=== PATIENT | male | born 1955 | race African-American/Black ===

== ENCOUNTER 2016-07-02 11:02 | Inpatient (IN) ==
--- NOTE | 2016-07-02 11:21 | Cardiothoracic History & Phys ---
History of Present Illness Chief complaint: chest pain History of present illness: Mr. Aldrich is a 61 year old male who presented to [facility] with recent onset of substernal chest discomfort radiating to his left arm. He has had previous similar pains when he had a stent placed approximately 3 years ago. He is been under increasing stress at home and he believes that this is provoked. He underwent cardiac catheterization revealing significant left main coronary stenosis and has been referred to this hospital for bypass surgery. Past medical history is significant in that in that he has end-stage renal disease and is on hemodialysis. He also has a history of severe hypertension. He has a history of substance abuse in the remote past presently neither drinks alcohol Ayala uses any illicit drugs. He is a nonsmoker. His medications at home include Coreg 12.5 mg daily. He is also on Robaxin and Aleve and nifedipine. His review of systems is noncontributory his family history does show history of premature coronary disease. Physical examination: Patient is a well-developed well-nourished - [place] man in no acute distress. Examination of HEENT show the pupils are equal and react to light extraocular motions are intact and the oropharynx is benign. Examination of the neck shows no masses there is no thyromegaly and there are no bruits. Semination her chest is clear to percussion and auscultation. Examination of heart shows regular sinus rhythm and there are no murmurs. Examination of the abdomen shows no masses or organomegaly. Examination of the extremities shows no cyanosis or edema. Neurological examination is grossly intact. Assessment: Coronary artery disease with left main coronary stenosis. Plan: Coronary bypass surgery in the morning 07/03/2016. Allergies Allergy/AdvReac Type Severity Reaction Status Date / Time LISINOPRIL Allergy Unknown Uncoded 04/18/16 08:35 GABENTIN Allergy Uncoded 04/18/16 08:35 Medical,Surgical,& Family Hx - Medical History Neurology: No history of: Seizures - Social History Smoking Status: Never smoker
[2016-07-02] MEDS ORDERED: DEXTROSE 50% 25 GM/50 ML VIAL IV PRN (11:22)
[2016-07-02] MEDS ORDERED: CEFUROXIME INJ 1,500 MG in SODIUM CHLORIDE 0.9% 100 ML IV ONE (11:22)
[2016-07-02] MEDS ORDERED: GLUCAGON 1 MG VIAL IM PRN (11:22)
[2016-07-02] MEDS: NAPROXEN 500 MG TABLET PO SCH ×2 (22:25→23:06)
[2016-07-02] MEDS: METHOCARBAMOL 500 MG TABLET PO SCH ×2 (22:26→23:05)
[2016-07-02] MEDS: SODIUM CHLORIDE 0.9% 1,000 ML IV SCH (22:26)
[2016-07-02] MEDS: CHLORHEXIDINE 4% SOLN 118 ML BOTTLE TOP SCH ×2 (22:26)
--- NOTE | 2016-07-02 22:28 | XRay Report ---
XR chest 2V Indication: CAD for CABG today Comparison: Chest x-ray dated July 06, 2014 Technique: Frontal and lateral views of the chest Findings: Mild cardiomegaly. Mild bilateral interstitial prominence may reflect interstitial pulmonary edema. There is small bilateral pleural fluid. Osseous and surrounding soft tissue structures appear grossly unchanged. IMPRESSION: As above. PROCEDURE INTERPRETED AT [facility] DEPARTMENT OF RADIOLOGY Final Report Signed by: Dr Don Reed
[2016-07-02] MEDS ORDERED: MORPHINE 2 MG/1 ML SYRINGE IV PRN (22:49)
[2016-07-02] MEDS ORDERED: hydrALAZINE 20 MG/1 ML VIAL IV PRN (22:50)
[2016-07-02 23:00] LABS: ABG PCO2 34.8 MM HG (35-48); ABG PH 7.432 (7.35-7.45); ABG PO2 70.7 MM HG (80-95); Pt O2 Delivery Device Room Air
[2016-07-02] MEDS ORDERED: NITROGLYCERIN DRIP 50 MG/250 ML BOTTLE IV SCH (23:00)
[2016-07-02 23:01] LABS: ABG Base Excess -0.6 MMOL/L (-2.5-2.5); ABG HCO3 23.9 MMOL/L (20-26); ABG Oxygen Saturation 95.2 % (95-100)
[2016-07-02] MEDS: CHLORHEXIDINE 0.12% ORAL RINSE 60 ML BOTTLE SWISH/SPIT SCH (23:06)
[2016-07-02 23:08] LABS: Basophils % 0.4 % (0.0-0.8); Eosinophils # 0.1 10*3/uL (0.0-0.87); Eosinophils % 1.7 % (0.00-10.9); Hemoglobin 10.5 GM/DL (14.0-18.0); Immature Granulocytes % 0.2 %; Immature Granulocytes Absolute 0.01 #; Lymphocytes # 0.9 10*3/uL (1.4-4.0); Lymphocytes % 17.2 % (21.2-54.2); Mean Corpuscular HGB Conc 33.9 GM/DL (32-36); Mean Corpuscular Hemoglobin 30 PG (27-34); Mean Corpuscular Volume 89.9 FL (87-102); Mean Platelet Volume 11.4 FL (9.6-12.0); Monocytes # 0.5 10*3/uL (0.11-0.8); Monocytes % 8.9 % (1.7-12.7); Neutrophils # 3.8 10*3/uL (1.4-7.4); Neutrophils % 71.6 % (38.7-73.9); Platelet Count 127 10*3/uL (130-400); Red Blood Count 3.45 10*6/uL (3.8-5.5); Red Cell Distribution Width 13.1 % (9.3-17.3); White Blood Count 5.3 10*3/uL (4.5-13.71)
[2016-07-02 23:36] LABS: Albumin 3.6 G/DL (3.4-5.0); Bilirubin,Total 0.5 MG/DL (0.2-1.0); Calcium 8.4 MG/DL (8.5-10.1); Osmolality,Calculated 289.4 MOS/KG (273-304); Potassium 4.7 MMOL/L (3.5-5.1); Total Protein 7.9 G/DL (6.4-8.3)
[2016-07-03] MEDS: CHLORHEXIDINE 4% SOLN 118 ML BOTTLE TOP SCH ×3 (01:41→16:41)
[2016-07-03] MEDS ORDERED: VANCOMYCIN 1,000 MG VIAL ONE (04:38)
[2016-07-03] MEDS ORDERED: PAPAVERINE 60 MG/2 ML VIAL ONE (04:38)
[2016-07-03] MEDS ORDERED: DIAZEPAM 5 MG TABLET PO ONE (05:39)
[2016-07-03] MEDS ORDERED: FAMOTIDINE 20 MG/2 ML VIAL IV ONE (05:39)
[2016-07-03] MEDS ORDERED: CEFUROXIME INJ 1,500 MG in SODIUM CHLORIDE 0.9% 100 ML IV ONE (06:00)
--- NOTE | 2016-07-03 06:23 | EKG Report ---
Stationary ECG Study [facility] Test Date: 07/03/2016 5:46:51 AM Pat Name: RADHA ANNE Department: Room: 117 Gender: M Sales Development Consultant: EMILIANO : 1955 Requested by: Carlos Kenyon Order Number: [id number] Reading MD: ELIZABET WU Intervals [place] Rate: 74 P: 73 NV: 181 QRS: -12 QRSD: 143 T: 28 QT: 449 QTc: 477 Interpretive Statements SINUS RHYTHM RIGHT BUNDLE BRANCH BLOCK MODERATE T-WAVE ABNORMALITY, CONSIDER LATERAL ISCHEMIA Electronically Signed On 07-03-16 20:44:41 PHYSICAL THERAPY MANAGER by ELIZABET WU [email or web address]
[2016-07-03 06:31] LABS: PT Patient Result 11.1 SECS
[2016-07-03] MEDS ORDERED: DEXAMETHASONE 4 MG/1 ML VIAL ONE (06:39)
[2016-07-03] MEDS ORDERED: VECURONIUM 10 MG VIAL IV ONE (06:39)
[2016-07-03] MEDS ORDERED: LIDOCAINE 1% 5 ML VIAL ONE (06:39)
[2016-07-03] MEDS ORDERED: CALCIUM CHLORIDE 1,000 MG/10 ML SYRINGE IV ONE ×4 (06:39→11:42)
[2016-07-03] MEDS ORDERED: ETOMIDATE 20 MG/10 ML VIAL IV ONE (06:39)
[2016-07-03] MEDS ORDERED: diphenhydrAMINE 50 MG/1 ML VIAL ONE (06:39)
[2016-07-03] MEDS ORDERED: AMINOCAPROIC ACID 5,000 MG/20 ML VIAL IV ONE (06:39)
[2016-07-03 07:26] LABS: Apearance,Urine Slightly Hazy (Clear); Bacteria,Urine Occasional /HPF (Few); Bilirubin,Urine Negative (Negative); Blood, Urine Small mg/dL (Negative); Glucose,Urine (UA) 150 mg/dL (Negative); Ketones,Urine Negative (Negative); Nitrite,Urine Negative (Negative); Protein,Urine >=500 MG/DL; RBC,Urine 1 /HPF (0-4); Squamous Epithelial Cell,Urine Occasional /HPF (0-10); Urine Color Yellow (Yellow); Urine Specific Gravity 1.013 (1.001-1.035); Urine Urobilinogen < 2.0 EU/DL (0.2-1.0); WBC,Urine 1 /HPF (0-6)
[2016-07-03 07:28] LABS: ABG Base Excess -1.6 MMOL/L (-2.5-2.5); ABG HCO3 23.1 MMOL/L (20-26); ABG Oxygen Saturation 99.8 % (95-100); ABG PCO2 37.2 MM HG (35-48); ABG PH 7.398 (7.35-7.45); ABG TCO2 21.3 MMOL/L (23-27); Glucose Heart Surgery 116 MG/DL (74-106); Hemoglobin Heart Surgery 8.3 G/DL (14.0-18.0); Ionized Calcium Arterial 1.04 MMOL/L (1.21-1.46); PCO2 Patient Temp Arterial 37.2 MMHG; PH Patient Temp Arterial 7.398; Patient Temperature 37 CELCIUS; Potassium Heart/CVR 3.9 MMOL/L (3.5-5.1); Sodium Heart/CVR 135 MMOL/L (135-145)
[2016-07-03 08:59] LABS: PCO2 Patient Temp Venous 36.8 MM HG; PH Patient Temp Venous 7.393; PO2 Patient Temp Venous 33.6 MM HG; Potassium Heart/CVR 4.2 MMOL/L (3.5-5.1); VBG HCO3 22.5 MEQ/L (24-28); VBG Oxygen Saturation 72.8 %; VBG PCO2 40.5 MMHG (41-51); VBG PH 7.365; VBG PO2 38.6 MMHG (17-40)
[2016-07-03] MEDS ORDERED: CARVEDILOL 12.5 MG TABLET PO SCH (09:00)
[2016-07-03 09:01] LABS: Hematocrit Heart Surgery 17.4 PERCENT (42-52); Hemoglobin Heart Surgery 5.5 G/DL (14.0-18.0)
[2016-07-03 09:27] LABS: Hematocrit Heart Surgery 29.1 PERCENT (42-52); Hemoglobin Heart Surgery 9.4 G/DL (14.0-18.0); PCO2 Patient Temp Venous 37.1 MM HG; PH Patient Temp Venous 7.367; PO2 Patient Temp Venous 34.4 MM HG; Potassium Heart/CVR 4.9 MMOL/L (3.5-5.1); VBG Base Excess -3.6 MEQ/L (0-4); VBG HCO3 21.1 MEQ/L (24-28); VBG Oxygen Saturation 72.7 %; VBG PH 7.353; VBG PO2 36.9 MMHG (17-40)
[2016-07-03] MEDS ORDERED: PHENYLEPHRINE DRIP 40 MG/250 ML PREMIX IV ONE (09:42)
[2016-07-03] MEDS ORDERED: NITROPRUSSIDE 50 MG/2 ML VIAL ONE ×2 (09:42→09:43)
[2016-07-03] MEDS ORDERED: ALBUMIN 5% 12.5 GM/250 ML VIAL IV ONE (09:50)
[2016-07-03] MEDS ORDERED: POTASSIUM CHLORIDE RIDER 100 ML IV ONE (09:50)
[2016-07-03 09:59] LABS: ABG Base Excess -4.1 MMOL/L (-2.5-2.5); ABG Oxygen Saturation 99.6 % (95-100); ABG PCO2 36.1 MM HG (35-48); ABG PH 7.366 (7.35-7.45); ABG TCO2 19.2 MMOL/L (23-27); Glucose Heart Surgery 181 MG/DL (74-106); Hematocrit Heart Surgery 26.7 PERCENT (42-52); Hemoglobin Heart Surgery 8.6 G/DL (14.0-18.0); Ionized Calcium Arterial 1.01 MMOL/L (1.21-1.46); PCO2 Patient Temp Arterial 36.1 MMHG; PH Patient Temp Arterial 7.366; Patient Temperature 37 CELCIUS; Potassium Heart/CVR 4.4 MMOL/L (3.5-5.1); Sodium Heart/CVR 131 MMOL/L (135-145)
[2016-07-03] MEDS ORDERED: SODIUM BICARBONATE 50 MEQ/50 ML VIAL IV ONE ×2 (10:00→12:35)
[2016-07-03] MEDS ORDERED: DEXTROSE 5% KCL 20 MEQ 20 MEQ/1,000 ML BAG IV ONE (10:00)
[2016-07-03] MEDS ORDERED: ALBUMIN 25% 25 GM/100 ML VIAL IV ONE (10:00)
[2016-07-03] MEDS ORDERED: MANNITOL 12.5 GM/50 ML VIAL IV ONE (10:01)
[2016-07-03] MEDS ORDERED: PROTAMINE SULFATE 50 MG/5 ML VIAL IV ONE (10:01)
[2016-07-03] MEDS ORDERED: HEPARIN 10,000 UNIT/10 ML VIAL ONE (10:01)
[2016-07-03] MEDS ORDERED: PROTAMINE SULFATE 250 MG/25 ML VIAL IV ONE (10:01)
[2016-07-03] MEDS ORDERED: MAGNESIUM SULFATE 1 GM/2 ML VIAL ONE (10:01)
[2016-07-03] MEDS ORDERED: methylPREDNISolone SOD SUC 1,000 MG/8 ML VIAL ONE (10:01)
[2016-07-03] MEDS ORDERED: FUROSEMIDE 20 MG/2 ML VIAL ONE (10:01)
[2016-07-03] MEDS ORDERED: THROMBIN TOPICAL (RECOMBINANT) 5,000 UNIT VIAL TOP ONE (10:12)
[2016-07-03] MEDS ORDERED: DOBUTamine 500 MG/250 ML PREMIX IV ONE (10:55)
[2016-07-03] MEDS ORDERED: methylPREDNISolone SOD SUC 125 MG/2 ML VIAL ONE (11:02)
[2016-07-03] MEDS ORDERED: EPINEPHrine 1 MG/10 ML SYRINGE ONE (11:03)
[2016-07-03] MEDS ORDERED: EPINEPHrine 1 MG/ML VIAL ONE (11:07)
[2016-07-03 11:11] LABS: ABG Base Excess -3.8 MMOL/L (-2.5-2.5); ABG HCO3 21.2 MMOL/L (20-26); ABG Oxygen Saturation 99.4 % (95-100); ABG PCO2 35.4 MM HG (35-48); ABG PH 7.377 (7.35-7.45); ABG TCO2 19.5 MMOL/L (23-27); Glucose Heart Surgery 182 MG/DL (74-106); Hematocrit Heart Surgery 24.7 PERCENT (42-52); Hemoglobin Heart Surgery 7.9 G/DL (14.0-18.0); Potassium Heart/CVR 5.2 MMOL/L (3.5-5.1)
[2016-07-03] MEDS ORDERED: ONDANSETRON 4 MG/2 ML VIAL IV PRN (11:12)
[2016-07-03] MEDS ORDERED: LACTATED RINGERS 250 ML IV PRN (11:12)
[2016-07-03] MEDS ORDERED: INSULIN REGULAR 100 UNIT/ML IV ONE (11:12)
[2016-07-03] MEDS ORDERED: POTASSIUM CHLORIDE RIDER 10 MEQ in PREMIX 1 EACH IV PRN (11:12)
[2016-07-03] MEDS ORDERED: DEXTROSE 50% 25 GM/50 ML VIAL IV PRN ×2 (11:12)
[2016-07-03] MEDS ORDERED: ACETAMINOPHEN 650 MG SUPP RECTAL PRN (11:12)
[2016-07-03] MEDS ORDERED: MAGNESIUM SULF RIDER 4 GM in PREMIX 1 EACH IV PRN (11:12)
[2016-07-03] MEDS ORDERED: NITROPRUSSIDE 100 MG in DEXTROSE 5% 250 ML IV PRN (11:12)
[2016-07-03] MEDS ORDERED: VECURONIUM 10 MG VIAL IV PRN ×2 (11:12)
[2016-07-03] MEDS ORDERED: MIDAZOLAM 10 MG/2 ML VIAL IV PRN (11:12)
[2016-07-03] MEDS ORDERED: MIDAZOLAM 2 MG/2 ML VIAL IV PRN (11:12)
[2016-07-03] MEDS ORDERED: CALCIUM CHLORIDE 1,000 MG/10 ML SYRINGE IV PRN (11:12)
[2016-07-03] MEDS ORDERED: MAGNESIUM SULF RIDER 2 GM in PREMIX 1 EACH IV PRN (11:12)
[2016-07-03] MEDS ORDERED: POTASSIUM CHLORIDE RIDER 20 MEQ in PREMIX 1 EACH IV PRN (11:12)
[2016-07-03] MEDS ORDERED: MORPHINE 10 MG/1 ML VIAL IV PRN (11:12)
[2016-07-03] MEDS ORDERED: EPINEPHrine 1 MG/10 ML SYRINGE IV ONE (11:20)
[2016-07-03] MEDS ORDERED: methylPREDNISolone SOD SUC 125 MG/2 ML VIAL IV ONE (11:20)
[2016-07-03] MEDS: SODIUM CHLORIDE 0.45% 1,000 ML IV SCH ×2 (11:20)
--- NOTE | 2016-07-03 11:22 | Operative Note ---
Date of procedure: 07/03/16 Pre-op diagnosis: coronary artery disease Post-op diagnosis: same Procedure: Procedure: Coronary bypass grafting times to the left internal mammary graft to the obtuse marginal coronary artery and a saphenous vein graft to the anterior descending coronary artery. Findings: Patient is a 61-year-old man who has end-stage renal disease and is on hemodialysis. He presented with substernal chest pain to [facility] cardiac catheterization demonstrated critical left main coronary stenosis. Patient was referred for that purpose. At the time of surgery left ventricular function was noted to be moderately impaired and a saphenous vein graft was placed to a moderately to heavily diseased anterior descending coronary artery. The internal mammary was placed to a disease-free obtuse marginal coronary artery. Patient tolerated the procedure well was returned recovery in satisfactory condition. Seizure: Patient brought to the operative room placed on the operating table in supine position. After satisfactory induction of general anesthesia the chest abdomen and legs were prepped and draped in sterile fashion. Greater saphenous vein was harvested from the left lower leg and prepared as an arterial graft. Incision leg was closed with 3-0 subcutaneous Monopril and 3-0 subcuticular Monocryl. Standard sternotomy incision was made and the sternum was divided and the heart suspended in a pericardial cradle. The left internal mammary artery was dissected free and prepared as an arterial graft. Patient was prepared for cardiopulmonary bypass with systemic heparinization and cannulation of the ascending aorta and right atrium. Cardiopulmonary bypass was begun and the aorta was crossclamped and the heart arrested with cardioplegia solution injected into the aortic root. Heart was protected during the period of crossclamping with topical saline slush. Distal anastomoses were constructed as noted above and then the aorta was unclamped reestablished and cardiac action. Proximal anastomosis was constructed between the ascending aorta and the inflow end of the saphenous vein graft. Patient was then weaned from cardiopulmonary bypass without difficulty and heparin effect reversed with protamine. Decannulation was carried out in the defects in the ascending aorta and right atrium closed with 3-0 Prolene. The operative field was inspected for hemostasis and when this was considered adequate the incision was closed with interrupted stainless steel wire and the sternum and 0 Monopril and the presternal fascia. Skin was closed with 3-0 subcuticular Monocryl. 2 chest tubes were left in the anterior mediastinum and brought out through separate stab incisions. Sterile dressings were applied and the patient was returned recovery in satisfactory condition. Anesthesia: RAMIROA Surgeon / Physician: Esvin Olivas Estimated blood loss: other Condition: stable Disposition: ICU (unable to determine because of cardiopulmonary bypass) Results - Labs CBC & BMP: 07/03/16 09:50 07/02/16 22:45 Discharge Plan - Discharge Medications No Action Insulin Aspart Prot/Asp 70/30 [NovoLOG Mix 70/30] 10 unit SUBCUT DAILY Naproxen [Naprosyn Tab] 1 tablet PO BID Methocarbamol Tab [Robaxin Tab] 1,000 mg PO QID Carvedilol [Coreg] 12.5 mg PO DAILY Aspirin EC Tab 81 mg PO DAILY traMADol TAB [Ultram] 1 tablet PO Q4H PRN PRN Reason: Pain Mild To Moderate (1-7) - Follow Up or Referral - Forms/Instructions
[2016-07-03 11:35] LABS: Basophils % 0.2 % (0.0-0.8); Eosinophils # 0.1 10*3/uL (0.0-0.87); Eosinophils % 0.7 % (0.00-10.9); Hematocrit 21.7 VOL% (42.0-52.0); Immature Granulocytes % 0.5 %; Immature Granulocytes Absolute 0.05 #; Lymphocytes # 1.4 10*3/uL (1.4-4.0); Lymphocytes % 14.5 % (21.2-54.2); Mean Corpuscular HGB Conc 34.1 GM/DL (32-36); Mean Corpuscular Hemoglobin 31 PG (27-34); Mean Corpuscular Volume 89.7 FL (87-102); Mean Platelet Volume 11.3 FL (9.6-12.0); Monocytes # 0.3 10*3/uL (0.11-0.8); Monocytes % 3.5 % (1.7-12.7); Neutrophils # 7.7 10*3/uL (1.4-7.4); Neutrophils % 80.6 % (38.7-73.9); Red Cell Distribution Width 14.2 % (9.3-17.3)
[2016-07-03 11:38] LABS: Hemoglobin 7.4 GM/DL (14.0-18.0); Red Blood Count 2.42 10*6/uL (3.8-5.5); White Blood Count 9.6 10*3/uL (4.5-13.71)
[2016-07-03 11:39] LABS: Platelet Count 136 10*3/uL (130-400)
[2016-07-03] MEDS: PHENYLEPHRINE DRIP 40 MG/250 ML PREMIX IV PRN ×2 (11:40→18:27)
[2016-07-03 11:44] LABS: INR 1.3; PT Patient Result 13.5 SECS; Partial Thromboplastin Time 30.1 SECS (0-40)
[2016-07-03] MEDS: SODIUM CHLORIDE 0.9% 1,000 ML IV PRN ×2 (12:00→13:02)
[2016-07-03 12:03] LABS: ABG Base Excess -7.8 MMOL/L (-2.5-2.5); ABG Oxygen Saturation 94.7 % (95-100); ABG PCO2 41.9 MM HG (35-48); ABG PH 7.261 (7.35-7.45); ABG PO2 76.9 MM HG (80-95); ABG TCO2 17.7 MMOL/L (23-27); Glucose Heart Surgery 228 MG/DL (74-106); Hematocrit Heart Surgery 27.2 PERCENT (42-52); Hemoglobin Heart Surgery 8.8 G/DL (14.0-18.0); Potassium Heart/CVR 5.2 MMOL/L (3.5-5.1)
[2016-07-03 12:07] LABS: CKMB % 4.3 %
[2016-07-03 12:13] LABS: Troponin I Only 4.82 NG/ML (0.00-0.045)
--- NOTE | 2016-07-03 12:27 | XRay Report ---
Portable chest Date:[07/03/2016] Clinical history: Line placement Comparison: 07/02/2016 Technique: Portable AP sitting chest Findings: The heart is large in size with interval median sternotomy. The endotracheal tube, nasogastric tube, and mediastinal chest tubes are in satisfactory position. Left subclavian CVP line with tip at junction of SVC and right atrium. No definite pneumothorax is identified. Minimal atelectasis with small left pleural effusion. Impression: Interval median sternotomy with support devices in satisfactory position. The heart is larger in size with minimal atelectasis and smaller pleural effusion. No definite pneumothorax. PROCEDURE INTERPRETED AT [facility] DEPARTMENT OF RADIOLOGY Final Report Signed by: Dr. Jessie Crow
[2016-07-03] MEDS ORDERED: SUFentanil 250 MCG/5 ML AMP ONE (12:34)
[2016-07-03] MEDS ORDERED: MIDAZOLAM 10 MG/2 ML VIAL ONE ×2 (12:34)
[2016-07-03] MEDS ORDERED: SODIUM CHLORIDE 0.9% 250 ML IV ONE (12:35)
[2016-07-03] MEDS ORDERED: SODIUM CHLORIDE 0.9% 100 ML IV ONE (12:35)
[2016-07-03] MEDS ORDERED: SODIUM CHLORIDE 0.9% 1,000 ML IV ONE (12:35)
[2016-07-03] MEDS ORDERED: SODIUM CHLORIDE 0.9% 500 ML IV ONE (12:35)
[2016-07-03] MEDS ORDERED: SEVOFLURANE 1 UNIT/15 MINUTE INH ONE (12:35)
[2016-07-03 13:17] LABS: ABG Oxygen Saturation 98.3 % (95-100); ABG PCO2 41.2 MM HG (35-48); ABG PH 7.303 (7.35-7.45); ABG PO2 170.9 MM HG (80-95); ABG TCO2 21.2 MMOL/L (23-27); Glucose Heart Surgery 203 MG/DL (74-106); Hemoglobin Heart Surgery 10.3 G/DL (14.0-18.0)
[2016-07-03 13:18] LABS: Potassium Heart/CVR 6.1 MMOL/L (3.5-5.1)
[2016-07-03] MEDS ORDERED: SODIUM POLYSTYRENE SULFATE 15 GM/60 ML BOTTLE PO ONE (13:34)
[2016-07-03] MEDS: INSULIN REGULAR DRIP 100 ML IV SCH (14:05)
[2016-07-03] MEDS ORDERED: ALBUMIN 25% 25 GM in PREMIX 1 EACH IV ONE (14:30)
[2016-07-03 14:36] LABS: Albumin 2.7 G/DL (3.4-5.0); Bilirubin,Total 0.9 MG/DL (0.2-1.0); Calcium 9.1 MG/DL (8.5-10.1); Magnesium 2.2 MG/DL (1.8-2.4); Osmolality,Calculated 288.7 MOS/KG (273-304); Potassium 4.9 MMOL/L (3.5-5.1); Total Protein 5.5 G/DL (6.4-8.3)
--- NOTE | 2016-07-03 14:41 | Nephrology Progress Note ---
Nephrology - PN: Subj Interval history: Patient was admitted last night from [facility] for cardiothoracic bypass surgery this morning. The patient presented at [place] a few days ago with chest pain and shortness of breath. He underwent a coronary angiogram there that revealed three-vessel disease. Presently the patient is intubated and sedate. Physical exam general patient's chronically ill-appearing, heart is regular rate and rhythm, he has no pitting edema, lungs are clear to auscultation anteriorly, abdomen is soft with decreased bowel sounds Assessment/plan 1. Coronary artery disease status post CABG 2. End-stage renal disease-this patient was dialyzed yesterday morning. We will plan on dialyzing him tomorrow and hold off on dialyzing the day of possible. 3. Hyperkalemia patient's most recent potassium was 6.1, aborted Kayexalate 30 g per NG tube and we'll repeat this in 4 hours if his repeat potassium than is 6.0 or greater. 4. Metabolic acidosis-patient's bicarbonate was 20 his PCO2 is 40, we may do well to increase his ventilatory rate a little too long some of his acid. 5. Anemia-patient's deloris hematocrit was 21% it's increased to 28% with blood transfusions 6. Diabetes mellitus-patient's on a insulin drip 7. Hypotension patient's on multiple pressor agents including Yogi-Synephrine and epinephrine, he is also requiring a large amount of normal saline volume infusion. I'll defer to CV surgery as to the balance between pressor agents and volume resuscitation. Exam (PN)-Nephrology - Vital Signs Vital signs: Period Temp Pulse Resp BP Sys/Franco Pulse Ox Last 24 Hr 98.1 F-99.3 F 70-81 10-45 118-211/51-115 85-99 - Lab 07/03/16 11:25 07/02/16 22:45 Most recent lab results ABG pH 7.303 (7.35-7.45) L 07/03/16 13:01 ABG pCO2 41.2 MM HG (35-48) 07/03/16 13:01 ABG pO2 170.9 MM HG (80-95) H 07/03/16 13:01 ABG HCO3 20.0 MMOL/L (20-26) 07/03/16 13:01 ABG O2 Saturation 98.3 % (95-100) 07/03/16 13:01 Calcium 8.4 MG/DL (8.5-10.1) L 07/02/16 22:45 Specialty Discharge - Follow Up or Referrals - Discharge Medications No Action Insulin Aspart Prot/Asp 30 [NovoLOG Mix 70/30] 10 unit SUBCUT DAILY Naproxen [Naprosyn Tab] 1 tablet PO BID Methocarbamol Tab [Robaxin Tab] 1,000 mg PO QID Carvedilol [Coreg] 12.5 mg PO DAILY Aspirin EC Tab 81 mg PO DAILY traMADol TAB [Ultram] 1 tablet PO Q4H PRN PRN Reason: Pain Mild To Moderate (1-7)
[2016-07-03] MEDS: METHOCARBAMOL 500 MG TABLET PO SCH (16:41)
[2016-07-03] MEDS: CHLORHEXIDINE 0.12% ORAL RINSE 60 ML BOTTLE SWISH/SPIT SCH ×2 (16:41→21:53)
[2016-07-03] MEDS: NAPROXEN 500 MG TABLET PO SCH (16:41)
[2016-07-03 18:12] LABS: ABG Base Excess -11.7 MMOL/L (-2.5-2.5); ABG HCO3 15.1 MMOL/L (20-26); ABG Oxygen Saturation 98.6 % (95-100); ABG PCO2 37.5 MM HG (35-48); ABG PH 7.223 (7.35-7.45); ABG PO2 204.4 MM HG (80-95); ABG TCO2 16.3 MMOL/L (23-27); Glucose Heart Surgery 123 MG/DL (74-106); Hemoglobin Heart Surgery 10.9 G/DL (14.0-18.0)
[2016-07-03 18:14] LABS: Potassium Heart/CVR 7.8 MMOL/L (3.5-5.1)
[2016-07-03] MEDS: CEFUROXIME INJ 1,500 MG in SODIUM CHLORIDE 0.9% 100 ML IV SCH (18:40)
[2016-07-03] MEDS: SODIUM CHLORIDE 0.9% 1,000 ML IV SCH (18:55)
[2016-07-03] MEDS: ALBUMIN 5% 12.5 GM in PREMIX 1 EACH IV PRN ×2 (19:53→20:27)
[2016-07-03 20:52] LABS: ABG Base Excess -7.7 MMOL/L (-2.5-2.5); ABG HCO3 18.5 MMOL/L (20-26); ABG PCO2 40.3 MM HG (35-48); ABG PH 7.279 (7.35-7.45); ABG PO2 111.4 MM HG (80-95); ABG TCO2 19.7 MMOL/L (23-27); Glucose Heart Surgery 95 MG/DL (74-106); Hemoglobin Heart Surgery 9.3 G/DL (14.0-18.0)
[2016-07-03 20:53] LABS: Potassium Heart/CVR 7.3 MMOL/L (3.5-5.1)
--- NOTE | 2016-07-03 21:04 | Dialysis Note ---
Dialysis Note - Dialysis Note Patient is seen on dialysis status post cardiovascular surgery. Blood pressures noted to be 103/50. Continue on a 2K bath and will repeat potassium level as patient's last potassium was noted be 7.3. Also increase in the dialysate flow which will help with potassium management
[2016-07-03] MEDS ORDERED: PROPOFOL 1,000 MG/100 ML BOTTLE IV ONE (21:40)
[2016-07-03 21:51] LABS: Troponin I Only 14.3 NG/ML (0.00-0.045)
[2016-07-03] MEDS ORDERED: PROPOFOL 1,000 MG/100 ML BOTTLE IV SCH (22:00)
[2016-07-03 23:38] LABS: ABG Base Excess -2.7 MMOL/L (-2.5-2.5); ABG HCO3 22.1 MMOL/L (20-26); ABG Oxygen Saturation 98.9 % (95-100); ABG PH 7.358 (7.35-7.45); ABG TCO2 20.8 MMOL/L (23-27); Glucose Heart Surgery 114 MG/DL (74-106); Hematocrit Heart Surgery 28.2 PERCENT (42-52); Hemoglobin Heart Surgery 9.1 G/DL (14.0-18.0); Potassium Heart/CVR 4.1 MMOL/L (3.5-5.1)
[2016-07-04] MEDS: MORPHINE 2 MG/1 ML SYRINGE IV PRN ×5 (01:40→21:59)
[2016-07-04] MEDS: INSULIN REGULAR 100 UNIT/ML IV PRN ×4 (02:06→08:16)
[2016-07-04 03:13] LABS: ABG Base Excess -5.8 MMOL/L (-2.5-2.5); ABG HCO3 19.6 MMOL/L (20-26); ABG Oxygen Saturation 97.5 % (95-100); ABG PCO2 33.8 MM HG (35-48); ABG PH 7.358 (7.35-7.45); ABG PO2 92.4 MM HG (80-95); ABG TCO2 17.7 MMOL/L (23-27); Glucose Heart Surgery 161 MG/DL (74-106); Hemoglobin Heart Surgery 8.4 G/DL (14.0-18.0)
[2016-07-04 03:41] LABS: CKMB % 4.6 %
[2016-07-04 03:50] LABS: Troponin I Only 27.5 NG/ML (0.00-0.045)
[2016-07-04 04:04] LABS: Basophils % 0.1 % (0.0-0.8); Hematocrit 24.1 VOL% (42.0-52.0); Hemoglobin 8.3 GM/DL (14.0-18.0); Immature Granulocytes % 0.7 %; Immature Granulocytes Absolute 0.09 #; Lymphocytes # 0.4 10*3/uL (1.4-4.0); Lymphocytes % 3.2 % (21.2-54.2); Mean Corpuscular HGB Conc 34.4 GM/DL (32-36); Mean Corpuscular Hemoglobin 30 PG (27-34); Mean Corpuscular Volume 88.3 FL (87-102); Mean Platelet Volume 12.8 FL (9.6-12.0); Monocytes # 0.7 10*3/uL (0.11-0.8); Monocytes % 4.9 % (1.7-12.7); Neutrophils # 12.4 10*3/uL (1.4-7.4); Neutrophils % 91.1 % (38.7-73.9); Platelet Count 132 10*3/uL (130-400); Red Blood Count 2.73 10*6/uL (3.8-5.5); Red Cell Distribution Width 15.2 % (9.3-17.3); White Blood Count 13.7 10*3/uL (4.5-13.71)
[2016-07-04 04:19] LABS: Albumin 3.7 G/DL (3.4-5.0); Bilirubin,Direct 1.3 MG/DL (0.0-0.20); Bilirubin,Total 2.2 MG/DL (0.2-1.0); Calcium 7.7 MG/DL (8.5-10.1); Magnesium 2.1 MG/DL (1.8-2.4); Osmolality,Calculated 289.4 MOS/KG (273-304); Total Protein 6.2 G/DL (6.4-8.3)
[2016-07-04 04:21] LABS: Potassium 6.3 MMOL/L (3.5-5.1)
[2016-07-04 04:39] LABS: ABG Base Excess -6.7 MMOL/L (-2.5-2.5); ABG HCO3 18.9 MMOL/L (20-26); ABG Oxygen Saturation 96.8 % (95-100); ABG PCO2 34.8 MM HG (35-48); ABG PH 7.334 (7.35-7.45); ABG PO2 90.5 MM HG (80-95); ABG TCO2 17.3 MMOL/L (23-27); Glucose Heart Surgery 161 MG/DL (74-106); Hematocrit Heart Surgery 26.3 PERCENT (42-52); Hemoglobin Heart Surgery 8.5 G/DL (14.0-18.0); Potassium Heart/CVR 5.7 MMOL/L (3.5-5.1)
[2016-07-04 05:00] LABS: Band Neutrophils 8 % (0-10); Lymphocytes 3 % (20-55); Platelet Estimate Adequate; Segmented Neutrophils 87 % (50-85); Total Cells Counted 100
[2016-07-04 05:01] LABS: Hypochromasia Slight; Microcytosis Slight
[2016-07-04 05:35] LABS: ABG Base Excess -6.5 MMOL/L (-2.5-2.5); ABG Oxygen Saturation 95.9 % (95-100); ABG PCO2 32.1 MM HG (35-48); ABG PH 7.367 (7.35-7.45); ABG PO2 90.9 MM HG (80-95); Glucose Heart Surgery 156 MG/DL (74-106); Hemoglobin Heart Surgery 8.7 G/DL (14.0-18.0); Potassium Heart/CVR 5.6 MMOL/L (3.5-5.1)
--- NOTE | 2016-07-04 06:10 | Cardiothoracic Progress Note ---
Cardiothoracic Subjective Interval history: Patient is postoperative day 1 following two-vessel coronary bypass surgery which was followed by a period of hypotension which I suspect may been related to either a protamine or more likely a platelet transfusion reaction. Patient initially required Yogi-Synephrine and epinephrine for blood pressure maintenance but now has been weaned off his Yogi-Synephrine and is being weaned off his epinephrine. The blood pressure is been stable since late yesterday afternoon and his heart rhythm is stable and normal sinus. His blood gases have been satisfactory and he is beginning to awaken and is being slowly weaned from the ventilator. He was dialyzed during the night because of hyperkalemia and his potassium is 5.7 this morning and he may need dialysis again today and I will defer to Dr. Tinsley. His hematocrit is 24% and he does need another unit of blood which she could get on dialysis if he is dialyzed or we will transfuse it intravenously otherwise. His chest tube drainage amounted to about 1900 mL altogether with most of the drainage in the first 3 hours following surgery. The drainage has been minimal overnight. I'm going to leave his chest tubes for now. Overall he seems to be stabilizing and we plan on weaning his pressors and weaning the ventilator as tolerated. Renal replacement therapy per nephrology. Exam (Progress Note) - Constitutional Vitals: Period Temp Pulse Resp BP Sys/Franco Pulse Ox Last 24 Hr 97.7 F-99.1 F 42-85 10-19 55-159/37-83 94-100 Result/EKG - Labs CBC & BMP: 07/04/16 04:00 07/04/16 03:10 Labs: Laboratory Results - last 24 hr 07/02/16 07/03/16 07/03/16 22:45 06:03 07:00 WBC RBC Hgb Hct MCV MCH MCHC RDW Plt Count MPV Neut % (Auto) Lymph % (Auto) [place] % (Auto) Eos % (Auto) Baso % (Auto) Neut # (Auto) Lymph # (Auto) [place] # (Auto) Eos # (Auto) Baso # (Auto) Total Counted Immature Gran % Nucleated RBC % Immature Gran # Segmented Neutrophils Band Neutrophils Lymphocytes Monocytes Nucleated RBCs # Platelet Estimate Hypochromasia Microcytosis INR 1.0 PT Patient/Control Mix 11.1 Circ Anticoag PTT Patient Temperature ABG pH ABG pH at Pt Temp ABG pCO2 ABG pCO2 at Pt Temp ABG pO2 ABG pO2 at Pt Temp ABG HCO3 ABG Total CO2 ABG O2 Saturation ABG Base Excess ABG Sodium VBG pH VBG pCO2 VBG pO2 VBG HCO3 VBG Total CO2 VBG O2 Saturation VBG Base Excess Hemoglobin Hematocrit Potassium Glucose Ionized Calcium FiO2 Sodium Chloride Carbon Dioxide Anion Gap BUN Creatinine GFR Calculation BUN/Creatinine Ratio Calculated Osmolality Calcium Venous Ioniz Calcium Magnesium Total Bilirubin Direct Bilirubin AST ALT Alkaline Phosphatase Total Creatine Kinase CK-MB (CK-2) CK and CKMB Interp Troponin I Total Protein Albumin Globulin Albumin/Globulin Ratio Urine Color Yellow Urine Appearance Slightly hazy Urine pH 6.0 Ur Specific [place] 1.013 Urine Protein >=500 Urine Glucose (UA) 150 Urine Ketones Negative Urine Blood Small Urine Nitrate Negative Urine Bilirubin Negative Urine Urobilinogen < 2.0 H Urine Leukocytes Negative Urine RBC 1 Urine WBC 1 Ur Squamous Epith Cells Occasional Urine Bacteria Occasional Ur Culture Indicated? Not indicated Blood Type B POSITIVE Antibody Screen Negative Crossmatch See Detail 07/03/16 07/03/16 07/03/16 07:15 07:15 08:50 WBC RBC Hgb Hct MCV MCH MCHC RDW Plt Count 85 L D MPV Neut % (Auto) Lymph % (Auto) [place] % (Auto) Eos % (Auto) Baso % (Auto) Neut # (Auto) Lymph # (Auto) [place] # (Auto) Eos # (Auto) Baso # (Auto) Total Counted Immature Gran % Nucleated RBC % Immature Gran # Segmented Neutrophils Band Neutrophils Lymphocytes Monocytes Nucleated RBCs # Platelet Estimate Hypochromasia Microcytosis INR PT Patient/Control Mix Circ Anticoag PTT Patient Temperature 37 35 ABG pH 7.398 ABG pH at Pt Temp 7.398 7.393 ABG pCO2 37.2 ABG pCO2 at Pt Temp 37.2 36.8 ABG pO2 270.0 H ABG pO2 at Pt Temp 270.0 33.6 ABG HCO3 23.1 ABG Total CO2 21.3 L ABG O2 Saturation 99.8 ABG Base Excess -1.6 ABG Sodium 135 129 L VBG pH 7.365 VBG pCO2 40.5 L VBG pO2 38.6 VBG HCO3 22.5 L VBG Total CO2 22.4 VBG O2 Saturation 72.8 VBG Base Excess -2.0 L Hemoglobin 8.3 L 5.5 L* D Hematocrit 26.0 L 17.4 L* Potassium 3.9 4.2 Glucose 116 H 261 H Ionized Calcium 1.04 L FiO2 80.00 Sodium Chloride Carbon Dioxide Anion Gap BUN Creatinine GFR Calculation BUN/Creatinine Ratio Calculated Osmolality Calcium Venous Ioniz Calcium 0.89 L Magnesium Total Bilirubin Direct Bilirubin AST ALT Alkaline Phosphatase Total Creatine Kinase CK-MB (CK-2) CK and CKMB Interp Troponin I Total Protein Albumin Globulin Albumin/Globulin Ratio Urine Color Urine Appearance Urine pH Ur Specific [place] Urine Protein Urine Glucose (UA) Urine Ketones Urine Blood Urine Nitrate Urine Bilirubin Urine Urobilinogen Urine Leukocytes Urine RBC Urine WBC Ur Squamous Epith Cells Urine Bacteria Ur Culture Indicated? Blood Type Antibody Screen Crossmatch 07/03/16 07/03/16 07/03/16 09:27 09:50 09:50 WBC RBC Hgb Hct MCV MCH MCHC RDW Plt Count 71 L MPV Neut % (Auto) Lymph % (Auto) [place] % (Auto) Eos % (Auto) Baso % (Auto) Neut # (Auto) Lymph # (Auto) [place] # (Auto) Eos # (Auto) Baso # (Auto) Total Counted Immature Gran % Nucleated RBC % Immature Gran # Segmented Neutrophils Band Neutrophils Lymphocytes Monocytes Nucleated RBCs # Platelet Estimate Hypochromasia Microcytosis INR PT Patient/Control Mix Circ Anticoag PTT Patient Temperature 36 37 ABG pH 7.366 ABG pH at Pt Temp 7.367 7.366 ABG pCO2 36.1 ABG pCO2 at Pt Temp 37.1 36.1 ABG pO2 295.0 H ABG pO2 at Pt Temp 34.4 295.0 ABG HCO3 21.0 ABG Total CO2 19.2 L ABG O2 Saturation 99.6 ABG Base Excess -4.1 L ABG Sodium 131 L 131 L VBG pH 7.353 VBG pCO2 39.0 L VBG pO2 36.9 VBG HCO3 21.1 L VBG Total CO2 20.0 VBG O2 Saturation 72.7 VBG Base Excess -3.6 L Hemoglobin 9.4 L D 8.6 L Hematocrit 29.1 L 26.7 L Potassium 4.9 4.4 Glucose 217 H 181 H Ionized Calcium 1.01 L FiO2 80.00 Sodium Chloride Carbon Dioxide Anion Gap BUN Creatinine GFR Calculation BUN/Creatinine Ratio Calculated Osmolality Calcium Venous Ioniz Calcium 0.91 L Magnesium Total Bilirubin Direct Bilirubin AST ALT Alkaline Phosphatase Total Creatine Kinase CK-MB (CK-2) CK and CKMB Interp Troponin I Total Protein Albumin Globulin Albumin/Globulin Ratio Urine Color Urine Appearance Urine pH Ur Specific [place] Urine Protein Urine Glucose (UA) Urine Ketones Urine Blood Urine Nitrate Urine Bilirubin Urine Urobilinogen Urine Leukocytes Urine RBC Urine WBC Ur Squamous Epith Cells Urine Bacteria Ur Culture Indicated? Blood Type Antibody Screen Crossmatch 07/03/16 07/03/16 07/03/16 11:09 11:25 11:25 WBC 9.6 D RBC 2.42 L D Hgb 7.4 L D Hct 21.7 L MCV 89.7 MCH 31 MCHC 34.1 RDW 14.2 Plt Count 136 D MPV 11.3 Neut % (Auto) 80.6 H Lymph % (Auto) 14.5 L Wink[place] % (Auto) 3.5 Eos % (Auto) 0.7 Baso % (Auto) 0.2 Neut # (Auto) 7.7 H Lymph # (Auto) 1.4 Winkler # (Auto) 0.3 Eos # (Auto) 0.1 Baso # (Auto) 0.0 Total Counted Immature Gran % 0.5 Nucleated RBC % 0.0 Immature Gran # 0.05 Segmented Neutrophils Band Neutrophils Lymphocytes Monocytes Nucleated RBCs # 0.00 Platelet Estimate Hypochromasia Microcytosis INR 1.3 PT Patient/Control Mix 13.5 D Circ Anticoag PTT 30.1 Patient Temperature ABG pH 7.377 ABG pH at Pt Temp ABG pCO2 35.4 ABG pCO2 at Pt Temp ABG pO2 160.0 H ABG pO2 at Pt Temp ABG HCO3 21.2 ABG Total CO2 19.5 L ABG O2 Saturation 99.4 ABG Base Excess -3.8 L ABG Sodium VBG pH VBG pCO2 VBG pO2 VBG HCO3 VBG Total CO2 VBG O2 Saturation VBG Base Excess Hemoglobin 7.9 L Hematocrit 24.7 L Potassium 5.2 H Glucose 182 H Ionized Calcium FiO2 Sodium Chloride Carbon Dioxide Anion Gap BUN Creatinine GFR Calculation BUN/Creatinine Ratio Calculated Osmolality Calcium Venous Ioniz Calcium Magnesium Total Bilirubin Direct Bilirubin AST ALT Alkaline Phosphatase Total Creatine Kinase CK-MB (CK-2) CK and CKMB Interp Troponin I Total Protein Albumin Globulin Albumin/Globulin Ratio Urine Color Urine Appearance Urine pH Ur Specific [place] Urine Protein Urine Glucose (UA) Urine Ketones Urine Blood Urine Nitrate Urine Bilirubin Urine Urobilinogen Urine Leukocytes Urine RBC Urine WBC Ur Squamous Epith Cells Urine Bacteria Ur Culture Indicated? Blood Type Antibody Screen Crossmatch 07/03/16 07/03/16 07/03/16 11:25 11:25 12:03 WBC RBC Hgb Hct MCV MCH MCHC RDW Plt Count MPV Neut % (Auto) Lymph % (Auto) [place] % (Auto) Eos % (Auto) Baso % (Auto) Neut # (Auto) Lymph # (Auto) [place] # (Auto) Eos # (Auto) Baso # (Auto) Total Counted Immature Gran % Nucleated RBC % Immature Gran # Segmented Neutrophils Band Neutrophils Lymphocytes Monocytes Nucleated RBCs # Platelet Estimate Hypochromasia Microcytosis INR PT Patient/Control Mix Circ Anticoag PTT Patient Temperature ABG pH 7.261 L ABG pH at Pt Temp ABG pCO2 41.9 ABG pCO2 at Pt Temp ABG pO2 76.9 L ABG pO2 at Pt Temp ABG HCO3 18.0 L ABG Total CO2 17.7 L ABG O2 Saturation 94.7 L ABG Base Excess -7.8 L ABG Sodium VBG pH VBG pCO2 VBG pO2 VBG HCO3 VBG Total CO2 VBG O2 Saturation VBG Base Excess Hemoglobin 8.8 L Hematocrit 27.2 L Potassium 4.9 5.2 H Glucose 195 H 228 H Ionized Calcium FiO2 Sodium 138 Chloride 104 Carbon Dioxide 20 L Anion Gap 18.9 H BUN 39 H Creatinine 7.10 H GFR Calculation 10 BUN/Creatinine Ratio 5.00 L Calculated Osmolality 288.7 Calcium 9.1 Venous Ioniz Calcium Magnesium 2.2 Total Bilirubin 0.90 Direct Bilirubin AST 24 ALT 15 L Alkaline Phosphatase 43 L Total Creatine Kinase 184 CK-MB (CK-2) 7.9 H CK and CKMB Interp 4.3 Troponin I 4.820 H Total Protein 5.5 L Albumin 2.7 L Globulin 2.8 Albumin/Globulin Ratio 0.9 L Urine Color Urine Appearance Urine pH Ur Specific [place] Urine Protein Urine Glucose (UA) Urine Ketones Urine Blood Urine Nitrate Urine Bilirubin Urine Urobilinogen Urine Leukocytes Urine RBC Urine WBC Ur Squamous Epith Cells Urine Bacteria Ur Culture Indicated? Blood Type Antibody Screen Crossmatch 07/03/16 07/03/16 07/03/16 13:01 18:03 20:49 WBC RBC Hgb Hct MCV MCH MCHC RDW Plt Count MPV Neut % (Auto) Lymph % (Auto) [place] % (Auto) Eos % (Auto) Baso % (Auto) Neut # (Auto) Lymph # (Auto) [place] # (Auto) Eos # (Auto) Baso # (Auto) Total Counted Immature Gran % Nucleated RBC % Immature Gran # Segmented Neutrophils Band Neutrophils Lymphocytes Monocytes Nucleated RBCs # Platelet Estimate Hypochromasia Microcytosis INR PT Patient/Control Mix Circ Anticoag PTT Patient Temperature ABG pH 7.303 L 7.223 L 7.279 L ABG pH at Pt Temp ABG pCO2 41.2 37.5 40.3 ABG pCO2 at Pt Temp ABG pO2 170.9 H 204.4 H 111.4 H ABG pO2 at Pt Temp ABG HCO3 20.0 15.1 L 18.5 L ABG Total CO2 21.2 L 16.3 L 19.7 L ABG O2 Saturation 98.3 98.6 97.0 ABG Base Excess -6.0 L -11.7 L -7.7 L ABG Sodium VBG pH VBG pCO2 VBG pO2 VBG HCO3 VBG Total CO2 VBG O2 Saturation VBG Base Excess Hemoglobin 10.3 L 10.9 L 9.3 L Hematocrit 30.0 L 32.0 L 27.0 L Potassium 6.1 H* 7.8 H* 7.3 H* Glucose 203 H 123 H 95 Ionized Calcium FiO2 Sodium Chloride Carbon Dioxide Anion Gap BUN Creatinine GFR Calculation BUN/Creatinine Ratio Calculated Osmolality Calcium Venous Ioniz Calcium Magnesium Total Bilirubin Direct Bilirubin AST ALT Alkaline Phosphatase Total Creatine Kinase CK-MB (CK-2) CK and CKMB Interp Troponin I Total Protein Albumin Globulin Albumin/Globulin Ratio Urine Color Urine Appearance Urine pH Ur Specific [place] Urine Protein Urine Glucose (UA) Urine Ketones Urine Blood Urine Nitrate Urine Bilirubin Urine Urobilinogen Urine Leukocytes Urine RBC Urine WBC Ur Squamous Epith Cells Urine Bacteria Ur Culture Indicated? Blood Type Antibody Screen Crossmatch 07/03/16 07/03/16 07/03/16 20:50 21:24 23:30 WBC RBC Hgb Hct MCV MCH MCHC RDW Plt Count MPV Neut % (Auto) Lymph % (Auto) [place] % (Auto) Eos % (Auto) Baso % (Auto) Neut # (Auto) Lymph # (Auto) [place] # (Auto) Eos # (Auto) Baso # (Auto) Total Counted Immature Gran % Nucleated RBC % Immature Gran # Segmented Neutrophils Band Neutrophils Lymphocytes Monocytes Nucleated RBCs # Platelet Estimate Hypochromasia Microcytosis INR PT Patient/Control Mix Circ Anticoag PTT Patient Temperature ABG pH 7.358 ABG pH at Pt Temp ABG pCO2 40.0 ABG pCO2 at Pt Temp ABG pO2 131.0 H ABG pO2 at Pt Temp ABG HCO3 22.1 ABG Total CO2 20.8 L ABG O2 Saturation 98.9 ABG Base Excess -2.7 L ABG Sodium VBG pH VBG pCO2 VBG pO2 VBG HCO3 VBG Total CO2 VBG O2 Saturation VBG Base Excess Hemoglobin 9.1 L Hematocrit 28.2 L Potassium 5.9 H 4.1 Glucose 114 H Ionized Calcium FiO2 Sodium Chloride Carbon Dioxide Anion Gap BUN Creatinine GFR Calculation BUN/Creatinine Ratio Calculated Osmolality Calcium Venous Ioniz Calcium Magnesium Total Bilirubin Direct Bilirubin AST ALT Alkaline Phosphatase Total Creatine Kinase 462 H D CK-MB (CK-2) 23.3 H D CK and CKMB Interp 5.0 Troponin I 14.300 H D Total Protein Albumin Globulin Albumin/Globulin Ratio Urine Color Urine Appearance Urine pH Ur Specific [place] Urine Protein Urine Glucose (UA) Urine Ketones Urine Blood Urine Nitrate Urine Bilirubin Urine Urobilinogen Urine Leukocytes Urine RBC Urine WBC Ur Squamous Epith Cells Urine Bacteria Ur Culture Indicated? Blood Type Antibody Screen Crossmatch 07/04/16 07/04/16 07/04/16 03:10 03:10 03:10 WBC RBC Hgb Hct MCV MCH MCHC RDW Plt Count MPV Neut % (Auto) Lymph % (Auto) [place] % (Auto) Eos % (Auto) Baso % (Auto) Neut # (Auto) Lymph # (Auto) [place] # (Auto) Eos # (Auto) Baso # (Auto) Total Counted Immature Gran % Nucleated RBC % Immature Gran # Segmented Neutrophils Band Neutrophils Lymphocytes Monocytes Nucleated RBCs # Platelet Estimate Hypochromasia Microcytosis INR PT Patient/Control Mix Circ Anticoag PTT Patient Temperature ABG pH 7.358 ABG pH at Pt Temp ABG pCO2 33.8 L ABG pCO2 at Pt Temp ABG pO2 92.4 ABG pO2 at Pt Temp ABG HCO3 19.6 L ABG Total CO2 17.7 L ABG O2 Saturation 97.5 ABG Base Excess -5.8 L ABG Sodium VBG pH VBG pCO2 VBG pO2 VBG HCO3 VBG Total CO2 VBG O2 Saturation VBG Base Excess Hemoglobin 8.4 L Hematocrit 26.0 L Potassium 6.3 H* 6.0 H* Glucose 152 H 161 H Ionized Calcium FiO2 Sodium 140 Chloride 103 Carbon Dioxide 18 L Anion Gap 25.3 H BUN 34 H Creatinine 5.80 H GFR Calculation 13 BUN/Creatinine Ratio 5.00 L Calculated Osmolality 289.4 Calcium 7.7 L Venous Ioniz Calcium Magnesium 2.1 Total Bilirubin 2.20 H Direct Bilirubin 1.3 H AST 9650 H ALT 6195 H Alkaline Phosphatase 52 Total Creatine Kinase 859 H D CK-MB (CK-2) 39.3 H D CK and CKMB Interp 4.6 Troponin I 27.500 H D Total Protein 6.2 L Albumin 3.7 Globulin 2.5 Albumin/Globulin Ratio 1.4 Urine Color Urine Appearance Urine pH Ur Specific [place] Urine Protein Urine Glucose (UA) Urine Ketones Urine Blood Urine Nitrate Urine Bilirubin Urine Urobilinogen Urine Leukocytes Urine RBC Urine WBC Ur Squamous Epith Cells Urine Bacteria Ur Culture Indicated? Blood Type Antibody Screen Crossmatch 07/04/16 07/04/16 07/04/16 04:00 04:25 05:35 WBC 13.7 D RBC 2.73 L Hgb 8.3 L Hct 24.1 L MCV 88.3 MCH 30 MCHC 34.4 RDW 15.2 Plt Count 132 MPV 12.8 H Neut % (Auto) 91.1 H Lymph % (Auto) 3.2 L [place] % (Auto) 4.9 Eos % (Auto) 0.0 Baso % (Auto) 0.1 Neut # (Auto) 12.4 H Lymph # (Auto) 0.4 L [place] # (Auto) 0.7 Eos # (Auto) 0.0 Baso # (Auto) 0.0 Total Counted 100 Immature Gran % 0.7 Nucleated RBC % 0.0 Immature Gran # 0.09 Segmented Neutrophils 87 H Band Neutrophils 8 Lymphocytes 3 L Monocytes 2 Nucleated RBCs # 0.00 Platelet Estimate Adequate Hypochromasia Slight Microcytosis Slight INR PT Patient/Control Mix Circ Anticoag PTT Patient Temperature ABG pH 7.334 L 7.367 ABG pH at Pt Temp ABG pCO2 34.8 L 32.1 L ABG pCO2 at Pt Temp ABG pO2 90.5 90.9 ABG pO2 at Pt Temp ABG HCO3 18.9 L 18.0 L ABG Total CO2 17.3 L 19.0 L ABG O2 Saturation 96.8 95.9 ABG Base Excess -6.7 L -6.5 L ABG Sodium VBG pH VBG pCO2 VBG pO2 VBG HCO3 VBG Total CO2 VBG O2 Saturation VBG Base Excess Hemoglobin 8.5 L 8.7 L Hematocrit 26.3 L 26.0 L Potassium 5.7 H 5.6 H Glucose 161 H 156 H Ionized Calcium FiO2 Sodium Chloride Carbon Dioxide Anion Gap BUN Creatinine GFR Calculation BUN/Creatinine Ratio Calculated Osmolality Calcium Venous Ioniz Calcium Magnesium Total Bilirubin Direct Bilirubin AST ALT Alkaline Phosphatase Total Creatine Kinase CK-MB (CK-2) CK and CKMB Interp Troponin I Total Protein Albumin Globulin Albumin/Globulin Ratio Urine Color Urine Appearance Urine pH Ur Specific [place] Urine Protein Urine Glucose (UA) Urine Ketones Urine Blood Urine Nitrate Urine Bilirubin Urine Urobilinogen Urine Leukocytes Urine RBC Urine WBC Ur Squamous Epith Cells Urine Bacteria Ur Culture Indicated? Blood Type Antibody Screen Crossmatch Quality Measures - VTE Contraindication to Pharmacological VTE Prophylaxis: High Risk of Bleeding Specialty Discharge - Follow Up or Referrals - Discharge Medications No Action Insulin Aspart Prot/Asp 70/30 [NovoLOG Mix 70/30] 10 unit SUBCUT DAILY Naproxen [Naprosyn Tab] 1 tablet PO BID Methocarbamol Tab [Robaxin Tab] 1,000 mg PO QID Carvedilol [Coreg] 12.5 mg PO DAILY Aspirin EC Tab 81 mg PO DAILY traMADol TAB [Ultram] 1 tablet PO Q4H PRN PRN Reason: Pain Mild To Moderate (1-7)
[2016-07-04] MEDS: CEFUROXIME INJ 1,500 MG in SODIUM CHLORIDE 0.9% 100 ML IV SCH ×2 (06:44→18:38)
--- NOTE | 2016-07-04 07:11 | EKG Report ---
Stationary ECG Study [facility] Test Date: 07/04/2016 7:10:46 AM Pat Name: RADHA ANNE Department: Room: 103 Gender: M Furniture Builder: ANGELIKA : 1955 Requested by: Esvin Salazar Order Number: [id number] MD: ELIZABET WU Intervals [place]ath Rate: 68 P: 52 LA: 150 QRS: -15 QRSD: 139 T: 25 QT: 455 QTc: 472 Interpretive Statements SINUS RHYTHM RIGHT BUNDLE BRANCH BLOCK Electronically Signed On 07-04-16 11:46:13 [employer] by ELIZABET WU [email or web address]
--- NOTE | 2016-07-04 07:53 | XRay Report ---
Portable chest Date:[07/04/2016] Clinical history: Post chest tube removal Comparison: 07/03/2016 Technique: Portable AP sitting chest Findings: Persistent cardiomegaly with recent median sternotomy. The remaining supportive devices are stable in position with no significant pneumothorax. Progressive atelectasis/edema at the lung bases with small pleural effusions. Impression: Status post median sternotomy with supportive devices satisfactory position. No definite pneumothorax is identified. Progressive atelectasis/minimal edema at the lung bases with small pleural effusions. PROCEDURE INTERPRETED AT [facility] DEPARTMENT OF RADIOLOGY Final Report Signed by: Dr. Jessie Crow
--- NOTE | 2016-07-04 08:05 | Nephrology Progress Note ---
Nephrology - PN: Subj Interval history: Patient is intubated and sedate. Physical exam general patient's chronically ill-appearing, heart is regular rate and rhythm, he has no pretibial edema, lungs are clear to auscultation anteriorly, abdomen is soft with decreased bowel sounds assessment/plan 1. Coronary artery disease-patient status post CABG. 2. End-stage renal disease-patient was dialyzed yesterday for hyperkalemia, the patient's potassium this morning was around 5.6 I'm going to recheck a potassium around noontime today and depending on those results we'll make a decision about dialysis today. 3. Anemia-this patient's hematocrit around 26%, if he's dialyze later will give him a unit of blood on dialysis if not he'll be transfused intravenously today 4. Metabolic acidosis-this is improved we'll recheck his bicarbonate later today 5. Respiratory failure continue ventilator support 6. Diabetes mellitus patient continues on insulin infusion 7. Hypotension-patient is getting weaned off his pressors he still on epinephrine presently. Exam (PN)-Nephrology - Vital Signs Vital signs: Period Temp Pulse Resp BP Sys/Franco Pulse Ox Last 24 Hr 97.7 F-99.1 F 42-85 10-19 55-159/37-83 94-100 - Lab 07/04/16 04:00 07/04/16 03:10 Most recent lab results ABG pH 7.367 (7.35-7.45) 07/04/16 05:35 ABG pCO2 32.1 MM HG (35-48) L 07/04/16 05:35 ABG pO2 90.9 MM HG (80-95) 07/04/16 05:35 ABG HCO3 18.0 MMOL/L (20-26) L 07/04/16 05:35 ABG O2 Saturation 95.9 % (95-100) 07/04/16 05:35 Calcium 7.7 MG/DL (8.5-10.1) L 07/04/16 03:10 Magnesium 2.1 MG/DL (1.8-2.4) 07/04/16 03:10
[2016-07-04] MEDS: CHLORHEXIDINE 0.12% ORAL RINSE 60 ML BOTTLE SWISH/SPIT SCH ×2 (08:50→21:24)
[2016-07-04 09:01] LABS: ABG Base Excess -7.4 MMOL/L (-2.5-2.5); ABG HCO3 18.3 MMOL/L (20-26); ABG Oxygen Saturation 97.5 % (95-100); ABG PCO2 31.8 MM HG (35-48); ABG PH 7.347 (7.35-7.45); ABG PO2 95.5 MM HG (80-95); ABG TCO2 16.3 MMOL/L (23-27); Glucose Heart Surgery 147 MG/DL (74-106); Hematocrit Heart Surgery 25.5 PERCENT (42-52); Hemoglobin Heart Surgery 8.2 G/DL (14.0-18.0)
[2016-07-04 12:22] LABS: ABG Base Excess -6.6 MMOL/L (-2.5-2.5); ABG Oxygen Saturation 96.9 % (95-100); ABG PCO2 33.9 MM HG (35-48); ABG PH 7.344 (7.35-7.45); ABG PO2 93.6 MM HG (80-95); ABG TCO2 17.3 MMOL/L (23-27); Glucose Heart Surgery 121 MG/DL (74-106); Hematocrit Heart Surgery 24.6 PERCENT (42-52); Hemoglobin Heart Surgery 7.9 G/DL (14.0-18.0); Potassium Heart/CVR 4.9 MMOL/L (3.5-5.1)
[2016-07-04] MEDS: SODIUM CHLORIDE 0.45% 1,000 ML IV SCH ×2 (12:27→15:25)
[2016-07-04] MEDS: INSULIN REGULAR DRIP 100 ML IV SCH (12:48)
[2016-07-04 13:08] LABS: CKMB % 4.1 %
[2016-07-04 13:10] LABS: Calcium 7.8 MG/DL (8.5-10.1); Osmolality,Calculated 294.3 MOS/KG (273-304); Potassium 5.1 MMOL/L (3.5-5.1)
[2016-07-04 13:15] LABS: Troponin I Only 29.5 NG/ML (0.00-0.045)
[2016-07-04 13:25] LABS: ABG Base Excess -5.9 MMOL/L (-2.5-2.5); ABG HCO3 19.6 MMOL/L (20-26); ABG Oxygen Saturation 96.2 % (95-100); ABG PCO2 35.4 MM HG (35-48); ABG PH 7.341 (7.35-7.45); ABG PO2 92.8 MM HG (80-95); ABG TCO2 16.8 MMOL/L (23-27); Glucose Heart Surgery 117 MG/DL (74-106); Hematocrit Heart Surgery 40.3 PERCENT (42-52); Hemoglobin Heart Surgery 13.1 G/DL (14.0-18.0); Potassium Heart/CVR 5.1 MMOL/L (3.5-5.1)
[2016-07-04 17:34] LABS: ABG Base Excess -5.2 MMOL/L (-2.5-2.5); ABG HCO3 19.8 MMOL/L (20-26); ABG Oxygen Saturation 95.7 % (95-100); ABG PCO2 36.3 MM HG (35-48); ABG PH 7.355 (7.35-7.45); ABG PO2 93.6 MM HG (80-95); ABG TCO2 20.9 MMOL/L (23-27); Glucose Heart Surgery 103 MG/DL (74-106); Hemoglobin Heart Surgery 9.3 G/DL (14.0-18.0)
[2016-07-04 17:38] LABS: Potassium Heart/CVR 6.2 MMOL/L (3.5-5.1)
[2016-07-04 23:01] LABS: ABG Base Excess -6.7 MMOL/L (-2.5-2.5); ABG HCO3 18.8 MMOL/L (20-26); ABG Oxygen Saturation 94.1 % (95-100); ABG PCO2 40.1 MM HG (35-48); ABG PH 7.292 (7.35-7.45); ABG PO2 79.2 MM HG (80-95); ABG TCO2 18.1 MMOL/L (23-27); Glucose Heart Surgery 149 MG/DL (74-106); Hematocrit Heart Surgery 27.2 PERCENT (42-52); Hemoglobin Heart Surgery 8.8 G/DL (14.0-18.0); Potassium Heart/CVR 5.9 MMOL/L (3.5-5.1)
[2016-07-05 04:05] LABS: Basophils % 0.1 % (0.0-0.8); Hematocrit 25.4 VOL% (42.0-52.0); Hemoglobin 8.6 GM/DL (14.0-18.0); Immature Granulocytes % 0.6 %; Immature Granulocytes Absolute 0.05 #; Lymphocytes # 0.4 10*3/uL (1.4-4.0); Mean Corpuscular HGB Conc 33.9 GM/DL (32-36); Mean Corpuscular Hemoglobin 30 PG (27-34); Mean Corpuscular Volume 89.1 FL (87-102); Monocytes # 0.4 10*3/uL (0.11-0.8); Monocytes % 5.5 % (1.7-12.7); NRBC # 0.22 10*3/uL; Neutrophils # 7.1 10*3/uL (1.4-7.4); Neutrophils % 88.8 % (38.7-73.9); Platelet Count 70 10*3/uL (130-400); Red Blood Count 2.85 10*6/uL (3.8-5.5)
[2016-07-05 05:10] LABS: Albumin 3.4 G/DL (3.4-5.0); Bilirubin,Direct 0.6 MG/DL (0.0-0.20); Bilirubin,Total 1.8 MG/DL (0.2-1.0); Calcium 7.7 MG/DL (8.5-10.1); Magnesium 2.5 MG/DL (1.8-2.4); Osmolality,Calculated 301.5 MOS/KG (273-304); Potassium 5.9 MMOL/L (3.5-5.1); Total Protein 5.9 G/DL (6.4-8.3)
[2016-07-05 05:13] LABS: Total Cells Counted 100
[2016-07-05 05:14] LABS: Anisocytosis 1+; Band Neutrophils 1 % (0-10); Lymphocytes 3 % (20-55); Myelocytes 2 %; Nucleated Red Blood Cells 4 (0-5); Segmented Neutrophils 94 % (50-85)
[2016-07-05] MEDS ORDERED: KETOROLAC 30 MG/1 ML VIAL IV PRN (05:14)
[2016-07-05 05:15] LABS: Platelet Estimate Decreased
[2016-07-05] MEDS ORDERED: GLUCAGON 1 MG VIAL IM PRN (06:49)
[2016-07-05] MEDS ORDERED: DEXTROSE 50% 25 GM/50 ML VIAL IV PRN (06:49)
--- NOTE | 2016-07-05 08:05 | Nephrology Progress Note ---
Nephrology - PN: Subj Interval history: Patient is extubated, he denies shortness of breath. Review of systems musculoskeletal-he has his pain control with regards to his chest and is not hurting to bed he states Physical exam general patient's in no acute distress, heart is regular rate and rhythm, he has no pitting edema in his lower extremities, his lungs are clear to auscultation anteriorly, abdomen is soft with positive bowel sounds, his weight is up about 8 KG's from his preoperative status. Assessment/plan 1. Coronary artery disease-patient status post CABG 2. End-stage renal disease-we'll plan on dialyzing the patient today I'll transfuse him a unit of blood on dialysis, I will minimize his ultrafiltration for now. 3. Hyperkalemia-patient's potassium is 5.9 4. Anemia-patient's hematocrit around 25% we'll transfuse him a unit of blood on dialysis today. Exam (PN)-Nephrology - Vital Signs Vital signs: Period Temp Pulse Resp BP Sys/Franco Pulse Ox Last 24 Hr 97.6 F-98.7 F 59-72 - 89-140/50-73 95-99 - Lab 07/05/16 03:45 07/05/16 03:45 Most recent lab results ABG pH 7.292 (7.35-7.45) L 07/04/16 22:56 ABG pCO2 40.1 MM HG (35-48) 07/04/16 22:56 ABG pO2 79.2 MM HG (80-95) L 07/04/16 22:56 ABG HCO3 18.8 MMOL/L (20-26) L 07/04/16 22:56 ABG O2 Saturation 94.1 % (95-100) L 07/04/16 22:56 Calcium 7.7 MG/DL (8.5-10.1) L 07/05/16 03:45 Magnesium 2.5 MG/DL (1.8-2.4) H 07/05/16 03:45
[2016-07-05] MEDS ORDERED: diphenhydrAMINE CAP 25 MG CAPSULE PO PRN (08:07)
[2016-07-05] MEDS ORDERED: ACETAMINOPHEN 325 MG TABLET PO PRN (08:07)
[2016-07-05] MEDS ORDERED: SODIUM CHLORIDE 0.9% 250 ML IV PRN (08:07)
[2016-07-05] MEDS ORDERED: traMADol 50 MG TABLET PO PRN (08:55)
--- NOTE | 2016-07-05 08:57 | Cardiothoracic Progress Note ---
Cardiothoracic Subjective Interval history: Patient is awake alert and extubated. Vital signs are stable with sinus rhythm and stable blood pressure off all pressors. He is breathing comfortably and his blood gases have been acceptable since extubation. He is due for dialysis today. He has had significant elevation of his liver enzymes presumably secondary to hypotension associated with his reaction which I think was caused by platelets. I think that we will watch him in intensive care today and tonight following his dialysis with the hope of transferring him to telemetry tomorrow. Exam (Progress Note) - Constitutional Vitals: Period Temp Pulse Resp BP Sys/Franco Pulse Ox Last 24 Hr 97.6 F-98.7 F 59-72 12-22 92-140/51-73 95-99 Result/EKG - Labs CBC & BMP: 07/05/16 03:45 07/05/16 03:45 Labs: Laboratory Results - last 24 hr 07/02/16 07/04/16 07/04/16 22:45 08:09 08:54 WBC RBC Hgb Hct MCV MCH MCHC RDW Plt Count MPV Neut % (Auto) Lymph % (Auto) [place] % (Auto) Eos % (Auto) Baso % (Auto) Neut # (Auto) Lymph # (Auto) [place] # (Auto) Eos # (Auto) Baso # (Auto) Total Counted Immature Gran % Nucleated RBC % Immature Gran # Segmented Neutrophils Band Neutrophils Lymphocytes Myelocytes Nucleated RBCs Nucleated RBCs # Platelet Estimate Anisocytosis ABG pH 7.347 L ABG pCO2 31.8 L ABG pO2 95.5 H ABG HCO3 18.3 L ABG Total CO2 16.3 L ABG O2 Saturation 97.5 ABG Base Excess -7.4 L Hemoglobin 8.2 L Hematocrit 25.5 L Potassium 6.0 H* Glucose 147 H Sodium Chloride Carbon Dioxide Anion Gap BUN Creatinine GFR Calculation BUN/Creatinine Ratio POC Glucose 149 H Calculated Osmolality Calcium Magnesium Total Bilirubin Direct Bilirubin AST ALT Alkaline Phosphatase Total Creatine Kinase CK-MB (CK-2) CK and CKMB Interp Troponin I Total Protein Albumin Globulin Albumin/Globulin Ratio Blood Type B POSITIVE Antibody Screen Negative Crossmatch See Detail 07/04/16 07/04/16 07/04/16 09:57 11:25 12:15 WBC RBC Hgb Hct MCV MCH MCHC RDW Plt Count MPV Neut % (Auto) Lymph % (Auto) [place] % (Auto) Eos % (Auto) Baso % (Auto) Neut # (Auto) Lymph # (Auto) [place] # (Auto) Eos # (Auto) Baso # (Auto) Total Counted Immature Gran % Nucleated RBC % Immature Gran # Segmented Neutrophils Band Neutrophils Lymphocytes Myelocytes Nucleated RBCs Nucleated RBCs # Platelet Estimate Anisocytosis ABG pH ABG pCO2 ABG pO2 ABG HCO3 ABG Total CO2 ABG O2 Saturation ABG Base Excess Hemoglobin Hematocrit Potassium Glucose Sodium Chloride Carbon Dioxide Anion Gap BUN Creatinine GFR Calculation BUN/Creatinine Ratio POC Glucose 140 H 120 H Calculated Osmolality Calcium Magnesium Total Bilirubin Direct Bilirubin AST ALT Alkaline Phosphatase Total Creatine Kinase 938 H CK-MB (CK-2) 38.7 H CK and CKMB Interp 4.1 Troponin I 29.500 H Total Protein Albumin Globulin Albumin/Globulin Ratio Blood Type Antibody Screen Crossmatch 07/04/16 07/04/16 07/04/16 12:15 12:18 13:21 WBC RBC Hgb Hct MCV MCH MCHC RDW Plt Count MPV Neut % (Auto) Lymph % (Auto) [place] % (Auto) Eos % (Auto) Baso % (Auto) Neut # (Auto) Lymph # (Auto) [place] # (Auto) Eos # (Auto) Baso # (Auto) Total Counted Immature Gran % Nucleated RBC % Immature Gran # Segmented Neutrophils Band Neutrophils Lymphocytes Myelocytes Nucleated RBCs Nucleated RBCs # Platelet Estimate Anisocytosis ABG pH 7.344 L 7.341 L ABG pCO2 33.9 L 35.4 ABG pO2 93.6 92.8 ABG HCO3 19.0 L 19.6 L ABG Total CO2 17.3 L 16.8 L ABG O2 Saturation 96.9 96.2 ABG Base Excess -6.6 L -5.9 L Hemoglobin 7.9 L 13.1 L D Hematocrit 24.6 L 40.3 L Potassium 5.1 4.9 5.1 Glucose 111 H 121 H 117 H Sodium 141 Chloride 104 Carbon Dioxide 19 L Anion Gap 23.1 H BUN 50 H D Creatinine 6.90 H GFR Calculation 11 BUN/Creatinine Ratio 7.00 POC Glucose Calculated Osmolality 294.3 Calcium 7.8 L Magnesium Total Bilirubin Direct Bilirubin AST ALT Alkaline Phosphatase Total Creatine Kinase CK-MB (CK-2) CK and CKMB Interp Troponin I Total Protein Albumin Globulin Albumin/Globulin Ratio Blood Type Antibody Screen Crossmatch 07/04/16 07/04/1607/04/17 14:22 15:17 16:05 WBC RBC Hgb Hct MCV MCH MCHC RDW Plt Count MPV Neut % (Auto) Lymph % (Auto) [place] % (Auto) Eos % (Auto) Baso % (Auto) Neut # (Auto) Lymph # (Auto) [place] # (Auto) Eos # (Auto) Baso # (Auto) Total Counted Immature Gran % Nucleated RBC % Immature Gran # Segmented Neutrophils Band Neutrophils Lymphocytes Myelocytes Nucleated RBCs Nucleated RBCs # Platelet Estimate Anisocytosis ABG pH ABG pCO2 ABG pO2 ABG HCO3 ABG Total CO2 ABG O2 Saturation ABG Base Excess Hemoglobin Hematocrit Potassium Glucose Sodium Chloride Carbon Dioxide Anion Gap BUN Creatinine GFR Calculation BUN/Creatinine Ratio POC Glucose 102 93 89 Calculated Osmolality Calcium Magnesium Total Bilirubin Direct Bilirubin AST ALT Alkaline Phosphatase Total Creatine Kinase CK-MB (CK-2) CK and CKMB Interp Troponin I Total Protein Albumin Globulin Albumin/Globulin Ratio Blood Type Antibody Screen Crossmatch 07/04/16 07/04/16 07/04/16 17:29 18:12 18:17 WBC RBC Hgb Hct MCV MCH MCHC RDW Plt Count MPV Neut % (Auto) Lymph % (Auto) [place] % (Auto) Eos % (Auto) Baso % (Auto) Neut # (Auto) Lymph # (Auto) [place] # (Auto) Eos # (Auto) Baso # (Auto) Total Counted Immature Gran % Nucleated RBC % Immature Gran # Segmented Neutrophils Band Neutrophils Lymphocytes Myelocytes Nucleated RBCs Nucleated RBCs # Platelet Estimate Anisocytosis ABG pH 7.355 ABG pCO2 36.3 ABG pO2 93.6 ABG HCO3 19.8 L ABG Total CO2 20.9 L ABG O2 Saturation 95.7 ABG Base Excess -5.2 L Hemoglobin 9.3 L Hematocrit 27.0 L Potassium 6.2 H* 6.1 H* D Glucose 103 Sodium Chloride Carbon Dioxide Anion Gap BUN Creatinine GFR Calculation BUN/Creatinine Ratio POC Glucose 118 H Calculated Osmolality Calcium Magnesium Total Bilirubin Direct Bilirubin AST ALT Alkaline Phosphatase Total Creatine Kinase CK-MB (CK-2) CK and CKMB Interp Troponin I Total Protein Albumin Globulin Albumin/Globulin Ratio Blood Type Antibody Screen Crossmatch 07/04/16 07/04/16 07/05/16 19:31 22:56 03:45 WBC 8.0 D RBC 2.85 L Hgb 8.6 L Hct 25.4 L MCV 89.1 MCH 30 MCHC 33.9 RDW 15.0 Plt Count 70 L D MPV 13.0 H Neut % (Auto) 88.8 H Lymph % (Auto) 5.0 L Walker % (Auto) 5.5 Eos % (Auto) 0.0 Baso % (Auto) 0.1 Neut # (Auto) 7.1 Lymph # (Auto) 0.4 L [place] # (Auto) 0.4 Eos # (Auto) 0.0 Baso # (Auto) 0.0 Total Counted 100 Immature Gran % 0.6 Nucleated RBC % 2.7 Immature Gran # 0.05 Segmented Neutrophils 94 H Band Neutrophils 1 Lymphocytes 3 L Myelocytes 2 Nucleated RBCs 4 Nucleated RBCs # 0.22 Platelet Estimate Decreased Anisocytosis 1+ ABG pH 7.292 L ABG pCO2 40.1 ABG pO2 79.2 L ABG HCO3 18.8 L ABG Total CO2 18.1 L ABG O2 Saturation 94.1 L ABG Base Excess -6.7 L Hemoglobin 8.8 L D Hematocrit 27.2 L Potassium 5.9 H Glucose 149 H Sodium Chloride Carbon Dioxide Anion Gap BUN Creatinine GFR Calculation BUN/Creatinine Ratio POC Glucose 145 H Calculated Osmolality Calcium Magnesium Total Bilirubin Direct Bilirubin AST ALT Alkaline Phosphatase Total Creatine Kinase CK-MB (CK-2) CK and CKMB Interp Troponin I Total Protein Albumin Globulin Albumin/Globulin Ratio Blood Type Antibody Screen Crossmatch 07/05/16 07/05/16 03:45 03:48 WBC RBC Hgb Hct MCV MCH MCHC RDW Plt Count MPV Neut % (Auto) Lymph % (Auto) [place] % (Auto) Eos % (Auto) Baso % (Auto) Neut # (Auto) Lymph # (Auto) [place] # (Auto) Eos # (Auto) Baso # (Auto) Total Counted Immature Gran % Nucleated RBC % Immature Gran # Segmented Neutrophils Band Neutrophils Lymphocytes Myelocytes Nucleated RBCs Nucleated RBCs # Platelet Estimate Anisocytosis ABG pH ABG pCO2 ABG pO2 ABG HCO3 ABG Total CO2 ABG O2 Saturation ABG Base Excess Hemoglobin Hematocrit Potassium 5.9 H Glucose 144 H Sodium 139 Chloride 102 Carbon Dioxide 19 L Anion Gap 23.9 H BUN 74 H D Creatinine 8.30 H GFR Calculation 9 BUN/Creatinine Ratio 8.00 POC Glucose 156 H Calculated Osmolality 301.5 Calcium 7.7 L Magnesium 2.5 H Total Bilirubin 1.80 H Direct Bilirubin 0.6 H AST 88469 H ALT 7965 H Alkaline Phosphatase 85 Total Creatine Kinase CK-MB (CK-2) CK and CKMB Interp Troponin I Total Protein 5.9 L Albumin 3.4 Globulin 2.5 Albumin/Globulin Ratio 1.3 Blood Type Antibody Screen Crossmatch Quality Measures - VTE Contraindication to Pharmacological VTE Prophylaxis: High Risk of Bleeding
[2016-07-05] MEDS: ASPIRIN EC 81 MG TABLET PO SCH (09:21)
[2016-07-05] MEDS: CARVEDILOL 12.5 MG TABLET PO SCH (09:22)
[2016-07-05] MEDS: NAPROXEN 500 MG TABLET PO SCH ×2 (09:22→21:25)
[2016-07-05] MEDS: CHLORHEXIDINE 0.12% ORAL RINSE 60 ML BOTTLE SWISH/SPIT SCH ×2 (09:22→21:25)
[2016-07-05] MEDS ORDERED: INSULIN REGULAR 100 UNIT/ML IV SCH (10:00)
[2016-07-05] MEDS ORDERED: INSULIN REGULAR 100 UNIT/ML SUBCUT PRN (10:18)
--- NOTE | 2016-07-05 10:39 | XRay Report ---
Portable chest Date:[07/05/2016] Clinical history: Post chest tube removal, valuate for pneumothorax Comparison: 07/04/2016 Technique: Portable AP sitting chest Findings: Persistent cardiomegaly with recent median sternotomy. Removal of the support devices except for left subclavian CVP line. No pneumothorax is identified. Reduced atelectasis/edema with residual small left pleural effusion. Impression: Status post median sternotomy. No evidence pneumothorax following removal of the mediastinal chest tubes. Endotracheal tube and nasogastric tube have been removed with stable left subclavian CVP line. Reduced atelectasis/edema with residual small left pleural effusion. PROCEDURE INTERPRETED AT [facility] DEPARTMENT OF RADIOLOGY Final Report Signed by: Dr. Jessie Crow
[2016-07-05] MEDS: MORPHINE 2 MG/1 ML SYRINGE IV PRN (10:48)
[2016-07-05] MEDS: SODIUM CHLORIDE 0.45% 1,000 ML IV SCH ×2 (12:34→12:35)
--- NOTE | 2016-07-05 18:23 | Dialysis Note ---
Dialysis Note - Dialysis Note Pt seen on dialysis. VSS & AF Tolerating HD without complications. Continue HD as prescribed.
[2016-07-06 04:22] LABS: ABG Base Excess -0.7 MMOL/L (-2.5-2.5); ABG PCO2 39.5 MM HG (35-48); ABG PH 7.401 (7.35-7.45); ABG PO2 55.2 MM HG (80-95); ABG TCO2 25.2 MMOL/L (23-27)
[2016-07-06 04:25] LABS: Hematocrit 27.9 VOL% (42.0-52.0); Hemoglobin 9.4 GM/DL (14.0-18.0); Immature Granulocytes % 1.5 %; Immature Granulocytes Absolute 0.14 #; Lymphocytes # 0.4 10*3/uL (1.4-4.0); Lymphocytes % 4.4 % (21.2-54.2); Mean Corpuscular HGB Conc 33.7 GM/DL (32-36); Mean Corpuscular Hemoglobin 29 PG (27-34); Mean Corpuscular Volume 87.2 FL (87-102); Mean Platelet Volume 13.2 FL (9.6-12.0); Monocytes # 0.5 10*3/uL (0.11-0.8); Monocytes % 5.5 % (1.7-12.7); NRBC # 0.73 10*3/uL; Neutrophils # 8.4 10*3/uL (1.4-7.4); Neutrophils % 88.6 % (38.7-73.9); Red Cell Distribution Width 14.5 % (9.3-17.3); White Blood Count 9.4 10*3/uL (4.5-13.71)
[2016-07-06 04:28] LABS: Platelet Count 78 10*3/uL (130-400)
[2016-07-06] MEDS ORDERED: HEPARIN/NACL 0.9% 2 UNITS/ML 500 ML IV ONE (04:35)
[2016-07-06 05:10] LABS: Band Neutrophils 4 % (0-10); Lymphocytes 3 % (20-55); Nucleated Red Blood Cells 4 (0-5); Segmented Neutrophils 92 % (50-85); Total Cells Counted 100
[2016-07-06 05:11] LABS: Albumin 3.5 G/DL (3.4-5.0); Bilirubin,Direct 0.7 MG/DL (0.0-0.20); Bilirubin,Total 1.7 MG/DL (0.2-1.0); Calcium 7.5 MG/DL (8.5-10.1); Magnesium 2.3 MG/DL (1.8-2.4); Osmolality,Calculated 296.7 MOS/KG (273-304); Potassium 4.3 MMOL/L (3.5-5.1)
[2016-07-06 05:12] LABS: Anisocytosis 1+; Microcytosis 1+; Platelet Estimate Decreased
--- NOTE | 2016-07-06 07:49 | XRay Report ---
XR chest 1V portable Indication: Chest tube removal, pneumothorax Comparison: 05 July 2016 Findings: The heart and mediastinum are stable in size and configuration with cardiac surgery changes. Left subclavian line catheter is unchanged in position. The pulmonary vascularity is normal in caliber. There is hazy increased the left lung density. No other lung infiltrates, effusions, pneumothorax or other abnormality is demonstrated. Impression: Hazy increased left lung density, could indicate effusion, infiltrate and/or atelectasis. PROCEDURE INTERPRETED AT [facility] DEPARTMENT OF RADIOLOGY Final Report Signed by: Dr. Hussein Winkler
[2016-07-06] MEDS: NAPROXEN 500 MG TABLET PO SCH ×2 (09:18→20:34)
[2016-07-06] MEDS: ASPIRIN EC 81 MG TABLET PO SCH (09:18)
[2016-07-06] MEDS: CARVEDILOL 12.5 MG TABLET PO SCH (09:19)
[2016-07-06] MEDS: CHLORHEXIDINE 0.12% ORAL RINSE 60 ML BOTTLE SWISH/SPIT SCH ×2 (09:20→22:50)
--- NOTE | 2016-07-06 09:28 | Cardiothoracic Progress Note ---
Cardiothoracic Subjective Interval history: Patient looks and feels some better today. He is breathing comfortably and his vital signs are stable. His liver enzymes are beginning to come on down. He remains in sinus rhythm and his blood pressure has been adequately controlled. His chest x-ray does show some increased atelectasis on the left with perhaps some fluid on that side and I think he would benefit from being out of bed and increasing his activity. We will transfer him to telemetry with that intent. Dialysis will be continued per nephrology plans. Exam (Progress Note) - Constitutional Vitals: Period Temp Pulse Resp BP Sys/Franco Pulse Ox Last 24 Hr 97.6 F-98.3 F 61-69 10-29 132-161/64-80 95-100 Result/EKG - Labs CBC & BMP: 07/06/16 03:58 07/06/16 03:58 Labs: Laboratory Results - last 24 hr 07/02/16 07/05/16 07/05/16 22:45 11:48 17:56 WBC RBC Hgb Hct MCV MCH MCHC RDW Plt Count MPV Neut % (Auto) Lymph % (Auto) [place] % (Auto) Eos % (Auto) Baso % (Auto) Neut # (Auto) Lymph # (Auto) [place] # (Auto) Eos # (Auto) Baso # (Auto) Total Counted Immature Gran % Nucleated RBC % Immature Gran # Segmented Neutrophils Band Neutrophils Lymphocytes Monocytes Nucleated RBCs Nucleated RBCs # Platelet Estimate Anisocytosis Microcytosis ABG pH ABG pCO2 ABG pO2 ABG HCO3 ABG Total CO2 ABG O2 Saturation ABG Base Excess Sodium Potassium Chloride Carbon Dioxide Anion Gap BUN Creatinine GFR Calculation BUN/Creatinine Ratio Glucose POC Glucose 196 H 152 H Calculated Osmolality Calcium Magnesium Total Bilirubin Direct Bilirubin AST ALT Alkaline Phosphatase Total Protein Albumin Globulin Albumin/Globulin Ratio Blood Type B POSITIVE Antibody Screen Negative Crossmatch See Detail 07/06/16 07/06/16 07/06/16 03:58 03:58 04:22 WBC 9.4 RBC 3.20 L Hgb 9.4 L Hct 27.9 L MCV 87.2 MCH 29 MCHC 33.7 RDW 14.5 Plt Count 78 L MPV 13.2 H Neut % (Auto) 88.6 H Lymph % (Auto) 4.4 L [place] % (Auto) 5.5 Eos % (Auto) 0.0 Baso % (Auto) 0.0 Neut # (Auto) 8.4 H Lymph # (Auto) 0.4 L [place] # (Auto) 0.5 Eos # (Auto) 0.0 Baso # (Auto) 0.0 Total Counted 100 Immature Gran % 1.5 Nucleated RBC % 7.7 Immature Gran # 0.14 Segmented Neutrophils 92 H Band Neutrophils 4 Lymphocytes 3 L Monocytes 1 L Nucleated RBCs 4 Nucleated RBCs # 0.73 Platelet Estimate Decreased Anisocytosis 1+ Microcytosis 1+ ABG pH 7.401 ABG pCO2 39.5 ABG pO2 55.2 L ABG HCO3 24.0 ABG Total CO2 25.2 ABG O2 Saturation 85.0 L ABG Base Excess -0.7 Sodium 138 Potassium 4.3 Chloride 99 Carbon Dioxide 25 Anion Gap 18.3 H BUN 56 H Creatinine 6.50 H GFR Calculation 11 BUN/Creatinine Ratio 8.00 Glucose 209 H POC Glucose Calculated Osmolality 296.7 Calcium 7.5 L Magnesium 2.3 Total Bilirubin 1.70 H Direct Bilirubin 0.7 H AST 3565 H ALT 5403 H Alkaline Phosphatase 102 Total Protein 6.0 L Albumin 3.5 Globulin 2.5 Albumin/Globulin Ratio 1.4 Blood Type Antibody Screen Crossmatch Quality Measures - VTE Contraindication to Pharmacological VTE Prophylaxis: High Risk of Bleeding Specialty Discharge - Follow Up or Referrals
[2016-07-06] MEDS ORDERED: GLUCAGON 1 MG VIAL IM PRN ×2 (09:31)
[2016-07-06] MEDS ORDERED: DEXTROSE 50% 25 GM/50 ML VIAL IV PRN ×2 (09:31)
[2016-07-06] MEDS ORDERED: MAGNESIUM HYDROXIDE SUSP 30 ML UDCUP PO PRN (09:31)
[2016-07-06] MEDS ORDERED: MAGNESIUM SULF RIDER 2 GM in PREMIX 1 EACH IV PRN (09:31)
[2016-07-06] MEDS ORDERED: MAGNESIUM SULF RIDER 4 GM in PREMIX 1 EACH IV PRN (09:31)
[2016-07-06] MEDS ORDERED: ALUMINUM/MAGNES/SIMETH MAX STR 30 ML UDCUP PO PRN (09:31)
[2016-07-06] MEDS ORDERED: POTASSIUM CHLORIDE 20 MEQ TABLET PO PRN (09:31)
[2016-07-06] MEDS ORDERED: MORPHINE 2 MG/1 ML SYRINGE IV PRN (09:31)
[2016-07-06] MEDS ORDERED: ONDANSETRON 4 MG/2 ML VIAL IV PRN (09:31)
[2016-07-06] MEDS ORDERED: ACETAMINOPHEN 325 MG TABLET PO PRN (09:31)
[2016-07-06] MEDS ORDERED: SODIUM CHLOR 0.45% KCL 20 MEQ 20 MEQ/1,000 ML BAG IV SCH (10:00)
--- NOTE | 2016-07-06 10:23 | Nephrology Progress Note ---
Nephrology - PN: Subj Interval history: Patient complains of some wheezing today. Review of systems GI he denies nausea or vomiting Physical exam general the patient's chronically ill-appearing, lungs are clear to auscultation anteriorly, abdomen he has no pitting edema Weight is around 97 KG's this is up from 87 KG's on his initial weight here Assessment/plan 1. End-stage renal disease-I'm not dialyze him for 3 hours a day and remove 2 KG's net as tolerated, also dialyze 3 hours tomorrow and try and remove another 2 KG's so as not to lose too much ground with his volume. 2. Coronary artery disease-patient status post CABG 3. Hyperkalemia this is resolved 4. Metabolic acidosis this is resolved 5. Hypotension-patient is off pressors at this point. Exam (PN)-Nephrology - Vital Signs Vital signs: Period Temp Pulse Resp BP Sys/Franco Pulse Ox Last 24 Hr 97.4 F-98.3 F 61-69 10-29 132-161/64-80 95-100 - Lab 07/06/16 03:58 07/06/16 03:58 Most recent lab results ABG pH 7.401 (7.35-7.45) 07/06/16 04:22 ABG pCO2 39.5 MM HG (35-48) 07/06/16 04:22 ABG pO2 55.2 MM HG (80-95) L 07/06/16 04:22 ABG HCO3 24.0 MMOL/L (20-26) 07/06/16 04:22 ABG O2 Saturation 85.0 % (95-100) L 07/06/16 04:22 Calcium 7.5 MG/DL (8.5-10.1) L 07/06/16 03:58 Magnesium 2.3 MG/DL (1.8-2.4) 07/06/16 03:58 Specialty Discharge - Follow Up or Referrals
--- NOTE | 2016-07-06 11:16 | Hospitalist Consult Note ---
<Petra Craig - Last Filed: 07/06/16 11:11> Assessment and Plan - Time spent with patient Time spent with patient: Greater than 30 minutes (due to assessment, plan and documentation) (1) Diabetes Status: Acute Assessment and plan: a1c today continue sliding scale insulin Current Visit: Yes (2) S/P CABG x 2 Status: Acute Current Visit: Yes (3) HTN (hypertension) Status: Acute Current Visit: Yes History of Present Illness - Data of Consult Patient: new to practice Consult date: 07/06/16 Requesting Physician: Esvin Olivas - Consult Narrative Reason for consult: DM Mgmt History of present illness: Mr. Aldrich is a 61 year old male who was transferred to our facility from [place] for CABG. He is lethargic on my visit this morning, but states that he does have a hx of ESRD on dialysis and HTN. Mr. Aldrich underwent CABG with Dr. Olivas on 07/03/16. He did not have any immediate complications. We were asked to see in consultation for management of his Diabetes. He is currently on appropriate sliding scale insulin and his sugars are routinely under 200. We will continue accu-checks ac/hs and sliding scale as needed. He has undergone dialysis since surgery and has tolerated well. He is also being treated for metabolic acidosis by Nephrology. He is for dialysis. Denies any chest pain, or SOB. Vital signs are stable at this point. Further plan and addendum to follow by Dr. Pal Steel. CC: Esvin Olivas MD - Home Medications and Allergies Home Medications: Home Medications Medication Instructions Recorded Confirmed Type Aspirin EC Tab 81 mg PO DAILY 07/03/16 07/03/16 History Carvedilol [Coreg] 12.5 mg PO DAILY 07/03/16 07/03/16 History Insulin Aspart Prot/Asp 70/30 10 unit SUBCUT DAILY 07/03/16 07/03/16 History [NovoLOG Mix 70/30] Methocarbamol Tab [Robaxin Tab] 1,000 mg PO QID 07/03/16 07/03/16 History Naproxen [Naprosyn Tab] 1 tablet PO BID 07/03/16 07/03/16 History traMADol TAB [Ultram] 1 tablet PO Q4H PRN 07/03/16 07/03/16 History Allergies/Adverse Reactions: Allergies Allergy/AdvReac Type Severity Reaction Status Date / Time LISINOPRIL Allergy Unknown Uncoded 04/18/16 08:35 GABENTIN Allergy Uncoded 04/18/16 08:35 Medical,Surgical,& Family Hx - Medical History Cardio: History of: CHF, Hypertension Psychological: History of: Depression (manic depression) Neurology: No history of: Seizures HEENT: History of: Eye Problem (glasses) Endocrine: History of: Diabetes Mellitus (IDDM) Musculoskeletal: History of: Back/Neck Problems, Degenerative Disk Disease, Herniated Disk - Surgical History Cardiac Surgeries: Sugical HX of: Cardiac Catheterization (2013) - Social History Smoking Status: Never smoker Frequency of Alcohol Use: None Type of Drug Use: None - Constitutional Constitutional: Absent: fever(s) - EENT Eyes: Absent: blurry vision, diplopia Ears: Absent: decreased hearing, tinnitus Nose, mouth and throat: Absent: dysphagia, headache(s) - Cardiovascular Cardiovascular: Absent: chest pain at rest, dyspnea - Respiratory Respiratory: Absent: cough, hemoptysis - Gastrointestinal Gastrointestinal: Absent: abdominal pain, nausea, vomiting - Genitourinary Genitourinary: Absent: hematuria - Musculoskeletal Musculoskeletal: Absent: back pain, joint swelling - Neurological Neurological: Absent: confusion, dizziness - Psychiatric Psychiatric: Absent: anxiety, confusion, depression - Endocrine Endocrine: Absent: cold intolerance, heat intolerance - Hematologic/Lymphatic Hematologic/Lymphatic: Absent: easy bleeding, easy bruising Exam - Constitutional Vitals: Period Temp Pulse Resp BP Sys/Franco Pulse Ox Last 24 Hr 97.4 F-98.3 F 62-69 12-29 116-161/58-80 95-100 General appearance: normal weight, no acute distress - Head Head exam: Present: normal inspection, normocephalic - Eye Eye exam: Present: EOMI. Absent: scleral icterus Pupils: Present: JACINTA, normal accommodation - ENT ENT exam: Present: normal exam, normal oropharynx - Neck Neck exam: Present: normal inspection. Absent: lymphadenopathy - Respiratory Respiratory exam: Present: clear to auscultation bilaterally. Absent: accessory muscle use - Cardiovascular Cardiovascular exam: Present: regular rate and rhythm. Absent: carotid bruit - GI/Abdominal GI/Abdominal exam: Present: normal bowel sounds, soft. Absent: tenderness - Extremities Exam Extremities exam: Present: normal inspection. Absent: edema - Back Exam Back exam: Present: normal inspection. Absent: muscle spasm - Neurological Exam Neurological exam: Present: alert, oriented X3 - Psychiatric Psychiatric exam: Present: normal affect, normal mood - Skin Skin exam: Present: normal color, warm, dry, intact, other (midline sternal incision s/p cabg. ) Results - Labs CBC & BMP: 07/06/16 03:58 07/06/16 03:58 Lab Results: I have reviewed the past 24 hour labs Quality Measures - VTE Contraindication to Pharmacological VTE Prophylaxis: High Risk of Bleeding Specialty Discharge - Follow Up or Referrals <Rebecca Gant - Last Filed: 07/07/16 10:29> History of Present Illness - Consult Narrative History of present illness: Mr. Aldrich is a 61 year old male with ESRD on dialysis and is s/p CABG. He had DM and we are consulted to follow for medical management. I reviewed the content of this consult note and discussed the findings with the nurse practitioner. I agree with the assessment and plan. CC: Esvin Olivas MD Exam - Constitutional Vitals: Period Temp Pulse Resp BP Sys/Franco Pulse Ox Last 24 Hr 97.3 F-98.3 F 61-65 13-20 113-149/62-90 95-98 Results - Labs CBC & BMP: 07/07/16 05:38 07/07/16 05:38 Lab Results: I have reviewed the past 24 hour labs
--- NOTE | 2016-07-06 14:30 | Dialysis Note ---
Dialysis Note - Dialysis Note Mr. Aldrich is seen during hemodialysis. He is alert and tolerating his dialysis well. Her plan is to dialyze again tomorrow. He is tolerating today' s dialysis well
[2016-07-06] MEDS: METHOCARBAMOL 500 MG TABLET PO SCH ×3 (17:15→20:34)
[2016-07-07 05:44] LABS: Hematocrit 26.7 VOL% (42.0-52.0); Immature Granulocytes % 2.1 %; Immature Granulocytes Absolute 0.23 #; Lymphocytes # 0.6 10*3/uL (1.4-4.0); Lymphocytes % 5.9 % (21.2-54.2); Mean Corpuscular HGB Conc 33.7 GM/DL (32-36); Mean Corpuscular Hemoglobin 30 PG (27-34); Mean Corpuscular Volume 90.2 FL (87-102); Mean Platelet Volume 12.5 FL (9.6-12.0); Monocytes # 0.6 10*3/uL (0.11-0.8); Monocytes % 5.5 % (1.7-12.7); NRBC # 0.65 10*3/uL; Neutrophils # 9.4 10*3/uL (1.4-7.4); Neutrophils % 86.5 % (38.7-73.9); Platelet Count 86 10*3/uL (130-400); Red Blood Count 2.96 10*6/uL (3.8-5.5); Red Cell Distribution Width 14.6 % (9.3-17.3); White Blood Count 10.8 10*3/uL (4.5-13.71)
[2016-07-07 06:20] LABS: Albumin 3.4 G/DL (3.4-5.0); Bilirubin,Direct 0.7 MG/DL (0.0-0.20); Bilirubin,Total 1.7 MG/DL (0.2-1.0); Calcium 7.2 MG/DL (8.5-10.1); Magnesium 2.3 MG/DL (1.8-2.4); Osmolality,Calculated 296.7 MOS/KG (273-304); Potassium 4.3 MMOL/L (3.5-5.1); Total Protein 5.9 G/DL (6.4-8.3)
[2016-07-07 06:39] LABS: Troponin I Only 5.26 NG/ML (0.00-0.045)
--- NOTE | 2016-07-07 08:36 | Cardiothoracic Progress Note ---
Cardiothoracic Subjective Interval history: Patient looks and feels some better. He seems to be breathing more comfortably. He underwent dialysis yesterday with the removal of significant fluid and dialysis is planned again for this morning. His blood pressure and heart rate have been stable. We will try to gradually increase his activity some after dialysis later today according to routine postoperative protocol. He does seem a little resistant to getting out of bed. Exam (Progress Note) - Constitutional Vitals: Period Temp Pulse Resp BP Sys/Franco Pulse Ox Last 24 Hr 97.3 F-98.3 F 61-65 12-20 113-149/58-78 95-98 Result/EKG - Labs CBC & BMP: 07/07/16 05:38 07/07/16 05:38 Labs: Laboratory Results - last 24 hr 07/06/16 07/06/16 07/06/16 15:56 19:40 Unknown WBC RBC Hgb Hct MCV MCH MCHC RDW Plt Count MPV Neut % (Auto) Lymph % (Auto) [place] % (Auto) Eos % (Auto) Baso % (Auto) Neut # (Auto) Lymph # (Auto) [place] # (Auto) Eos # (Auto) Baso # (Auto) Immature Gran % Nucleated RBC % Immature Gran # Nucleated RBCs # Sodium Potassium Chloride Carbon Dioxide Anion Gap BUN Creatinine GFR Calculation BUN/Creatinine Ratio Glucose POC Glucose 252 H 255 H Hemoglobin A1c 6.4 H Calculated Osmolality Calcium Magnesium Total Bilirubin Direct Bilirubin Indirect Bilirubin AST ALT Alkaline Phosphatase Total Creatine Kinase CK-MB (CK-2) CK and CKMB Interp Troponin I Total Protein Albumin Globulin Albumin/Globulin Ratio 07/07/16 07/07/16 07/07/16 05:38 05:38 08:20 WBC 10.8 RBC 2.96 L Hgb 9.0 L Hct 26.7 L MCV 90.2 MCH 30 MCHC 33.7 RDW 14.6 Plt Count 86 L MPV 12.5 H Neut % (Auto) 86.5 H Lymph % (Auto) 5.9 L [place] % (Auto) 5.5 Eos % (Auto) 0.0 Baso % (Auto) 0.0 Neut # (Auto) 9.4 H Lymph # (Auto) 0.6 L [place] # (Auto) 0.6 Eos # (Auto) 0.0 Baso # (Auto) 0.0 Immature Gran % 2.1 Nucleated RBC % 6.0 Immature Gran # 0.23 Nucleated RBCs # 0.65 Sodium 138 Potassium 4.3 Chloride 99 Carbon Dioxide 24 Anion Gap 19.3 H BUN 63 H Creatinine 6.70 H GFR Calculation 11 BUN/Creatinine Ratio 9.00 Glucose 169 H POC Glucose 167 H Hemoglobin A1c Calculated Osmolality 296.7 Calcium 7.2 L Magnesium 2.3 Total Bilirubin 1.70 H Direct Bilirubin 0.7 H Indirect Bilirubin 1.0 AST 1356 H ALT 3498 H Alkaline Phosphatase 102 Total Creatine Kinase 589 H D CK-MB (CK-2) 5.6 H D CK and CKMB Interp 1.0 Troponin I 5.260 H D Total Protein 5.9 L Albumin 3.4 Globulin 2.5 Albumin/Globulin Ratio 1.3 Quality Measures - VTE Contraindication to Pharmacological VTE Prophylaxis: High Risk of Bleeding Specialty Discharge - Follow Up or Referrals
--- NOTE | 2016-07-07 09:20 | XRay Report ---
History is short of breath Comparison 07/06/2016 The cardiac silhouette remains some moderate to severely enlarged There has been slight improvement of diffuse bilateral pulmonary opacities. There remains more focal consolidation and suspected effusion obscuring the left diaphragm. Impression: 1. Mild improvement of prior diffuse or edema 2. Continued more focal consolidation and effusion in the lower third of the left chest PROCEDURE INTERPRETED AT [facility] DEPARTMENT OF RADIOLOGY Final Report Signed by: Dr. Ginna Fisher
[2016-07-07] MEDS: METHOCARBAMOL 500 MG TABLET PO SCH ×4 (10:03→22:06)
[2016-07-07] MEDS: FERROUS SULFATE 325 MG TABLET PO SCH (10:03)
[2016-07-07] MEDS: ASPIRIN EC 81 MG TABLET PO SCH (10:03)
[2016-07-07] MEDS: DOCUSATE SODIUM 100 MG CAPSULE PO SCH (10:03)
[2016-07-07] MEDS: NAPROXEN 500 MG TABLET PO SCH ×2 (10:03→22:05)
[2016-07-07] MEDS: PANTOPRAZOLE 40 MG TABLET PO SCH (10:03)
[2016-07-07] MEDS: CHLORHEXIDINE 0.12% ORAL RINSE 60 ML BOTTLE SWISH/SPIT SCH ×2 (10:04→22:06)
[2016-07-07] MEDS: CARVEDILOL 12.5 MG TABLET PO SCH (10:04)
--- NOTE | 2016-07-07 10:31 | Hospitalist Progress Note ---
Assessment and Plan (1) Diabetes Status: Chronic Assessment and plan: Hemoglobin A1c 6.4. Continue sliding scale and Accu-Cheks. Current Visit: Yes Qualifiers: Diabetes mellitus type: type 2 Diabetes mellitus complication status: with kidney complications Diabetes mellitus complication detail: with chronic kidney disease Chronic kidney disease stage: on chronic dialysis (2) HTN (hypertension) Status: Chronic Current Visit: Yes Qualifiers: Hypertension type: essential hypertension Qualified Code(s): I10 - Essential (primary) hypertension (3) S/P CABG x 2 Status: Acute Current Visit: Yes (4) ESRD (end stage renal disease) on dialysis Status: Chronic Assessment and plan: Dialysis per nephrology. Current Visit: Yes Hospitalist: Subjective Interval history: Patient seen and examined while on dialysis. He reports feeling gassy and bloated. Mild chest discomfort but is tolerable. No acute events overnight. Exam - Constitutional Vitals: Period Temp Pulse Resp BP Sys/Franco Pulse Ox Last 24 Hr 97.3 F-98.3 F 61-65 13-20 113-149/62-90 95-98 General appearance: no acute distress - Head Head exam: Present: normal inspection, normocephalic, atraumatic - Eye Eye exam: Present: EOMI Pupils: Present: JACINTA - Respiratory Respiratory exam: Present: clear to auscultation bilaterally - Cardiovascular Cardiovascular exam: Present: regular rate and rhythm - GI/Abdominal GI/Abdominal exam: Present: normal bowel sounds, distended, soft. Absent: tenderness, rebound - Extremities Exam Extremities exam: Absent: edema - Neurological Exam Neurological exam: Present: alert, oriented X3 - Psychiatric Psychiatric exam: Present: normal affect, normal mood - Skin Skin exam: Present: normal color, warm, dry Results - Labs CBC & BMP: 07/07/16 05:38 07/07/16 05:38 Lab Results: I have reviewed the past 24 hour labs Quality Measures - VTE Contraindication to Pharmacological VTE Prophylaxis: High Risk of Bleeding Specialty Discharge - Follow Up or Referrals
--- NOTE | 2016-07-07 10:46 | Dialysis Note ---
Dialysis Note - Dialysis Note Mr. Juarez is seen on dialysis. He is doing well maintaining a stable blood pressure but is anxious to be finished with dialysis today. We'll continue dialysis per usual schedule next week.
[2016-07-07] MEDS: oxyCODONE/ACETAMINOPHEN 5-325 MG TABLET PO PRN ×2 (12:51→20:43)
[2016-07-07] MEDS: SODIUM CHLORIDE 0.45% 1,000 ML IV SCH ×2 (15:05)
[2016-07-07] MEDS: ZALEPLON 5 MG CAPSULE PO PRN (20:43)
[2016-07-08 06:07] LABS: Eosinophils # 0.1 10*3/uL (0.0-0.87); Eosinophils % 0.5 % (0.00-10.9); Hematocrit 27.5 VOL% (42.0-52.0); Immature Granulocytes % 1.7 %; Immature Granulocytes Absolute 0.21 #; Lymphocytes # 1.1 10*3/uL (1.4-4.0); Lymphocytes % 8.8 % (21.2-54.2); Mean Corpuscular HGB Conc 32.7 GM/DL (32-36); Mean Corpuscular Hemoglobin 30 PG (27-34); Mean Corpuscular Volume 91.4 FL (87-102); Mean Platelet Volume 11.6 FL (9.6-12.0); Monocytes # 0.8 10*3/uL (0.11-0.8); Monocytes % 6.5 % (1.7-12.7); NRBC # 0.47 10*3/uL; Neutrophils # 10.1 10*3/uL (1.4-7.4); Neutrophils % 82.5 % (38.7-73.9); Platelet Count 112 10*3/uL (130-400); Red Blood Count 3.01 10*6/uL (3.8-5.5); Red Cell Distribution Width 14.7 % (9.3-17.3); White Blood Count 12.2 10*3/uL (4.5-13.71)
[2016-07-08 06:44] LABS: Alanine Aminotransferase 2619 U/L (16-61); Albumin 3.5 G/DL (3.4-5.0); Alkaline Phosphatase 109 U/L (45-117); Aspartate Amino Transferase 692 U/L (0-37); Bilirubin,Direct 0.7 MG/DL (0.0-0.20); Bilirubin,Indirect 1.3 MG/DL (0.0-1.0); Blood Urea Nitrogen 60 MG/DL (7-18); Calcium 7.5 MG/DL (8.5-10.1); Glucose 140 MG/DL (74-106); Magnesium 2.5 MG/DL (1.8-2.4); Osmolality,Calculated 291.8 MOS/KG (273-304); Potassium 4.4 MMOL/L (3.5-5.1); Sodium 137 MMOL/L (136-145); Total Protein 6.3 G/DL (6.4-8.3)
--- NOTE | 2016-07-08 08:28 | Cardiothoracic Progress Note ---
Cardiothoracic Subjective Interval history: Patient looks and feels much better today. He tolerated dialysis well yesterday and his vital signs are stable today and he is breathing comfortably. He is gradually increasing his activity and is walking with assistance. We will increase his activity as tolerated. He is due for dialysis tomorrow and probably for discharge on Saturday. Exam (Progress Note) - Constitutional Vitals: Period Temp Pulse Resp BP Sys/Franco Pulse Ox Last 24 Hr 96.5 F-97.9 F 57-63 16-20 110-148/69-81 91-96 Result/EKG - Labs CBC & BMP: 07/08/16 05:44 07/08/16 05:44 Labs: Laboratory Results - last 24 hr 07/07/16 07/07/16 07/08/16 12:14 16:55 05:44 WBC 12.2 RBC 3.01 L Hgb 9.0 L Hct 27.5 L MCV 91.4 MCH 30 MCHC 32.7 RDW 14.7 Plt Count 112 L D MPV 11.6 Neut % (Auto) 82.5 H Lymph % (Auto) 8.8 L [place] % (Auto) 6.5 Eos % (Auto) 0.5 Baso % (Auto) 0.0 Neut # (Auto) 10.1 H Lymph # (Auto) 1.1 L [place] # (Auto) 0.8 Eos # (Auto) 0.1 Baso # (Auto) 0.0 Immature Gran % 1.7 Nucleated RBC % 3.8 Immature Gran # 0.21 Nucleated RBCs # 0.47 Sodium Potassium Chloride Carbon Dioxide Anion Gap BUN Creatinine GFR Calculation BUN/Creatinine Ratio Glucose POC Glucose 123 H 196 H Calculated Osmolality Calcium Magnesium Total Bilirubin Direct Bilirubin Indirect Bilirubin AST ALT Alkaline Phosphatase Total Creatine Kinase CK-MB (CK-2) Troponin I Total Protein Albumin Globulin Albumin/Globulin Ratio 07/08/16 05:44 WBC RBC Hgb Hct MCV MCH MCHC RDW Plt Count MPV Neut % (Auto) Lymph % (Auto) [place] % (Auto) Eos % (Auto) Baso % (Auto) Neut # (Auto) Lymph # (Auto) [place] # (Auto) Eos # (Auto) Baso # (Auto) Immature Gran % Nucleated RBC % Immature Gran # Nucleated RBCs # Sodium 137 Potassium 4.4 Chloride 99 Carbon Dioxide 24 Anion Gap 18.4 H BUN 60 H Creatinine 6.50 H GFR Calculation 12 BUN/Creatinine Ratio 9.00 Glucose 140 H POC Glucose Calculated Osmolality 291.8 Calcium 7.5 L Magnesium 2.5 H Total Bilirubin 2.00 H Direct Bilirubin 0.7 H Indirect Bilirubin 1.3 H AST 692 H ALT 2619 H Alkaline Phosphatase 109 Total Creatine Kinase 448 H D CK-MB (CK-2) 4.0 H Troponin I 3.510 H D Total Protein 6.3 L Albumin 3.5 Globulin 2.8 Albumin/Globulin Ratio 1.2 Quality Measures - VTE Contraindication to Pharmacological VTE Prophylaxis: High Risk of Bleeding Specialty Discharge - Follow Up or Referrals
[2016-07-08] MEDS: FERROUS SULFATE 325 MG TABLET PO SCH (08:52)
[2016-07-08] MEDS: PANTOPRAZOLE 40 MG TABLET PO SCH (08:52)
[2016-07-08] MEDS: DOCUSATE SODIUM 100 MG CAPSULE PO SCH (08:52)
[2016-07-08] MEDS: ASPIRIN EC 81 MG TABLET PO SCH (08:52)
[2016-07-08] MEDS: NAPROXEN 500 MG TABLET PO SCH ×2 (08:52→21:30)
[2016-07-08] MEDS: CARVEDILOL 12.5 MG TABLET PO SCH (08:52)
[2016-07-08] MEDS: CHLORHEXIDINE 0.12% ORAL RINSE 60 ML BOTTLE SWISH/SPIT SCH ×2 (08:53→21:30)
[2016-07-08] MEDS: METHOCARBAMOL 500 MG TABLET PO SCH ×4 (08:53→21:30)
[2016-07-08] MEDS: oxyCODONE/ACETAMINOPHEN 5-325 MG TABLET PO PRN ×2 (09:01→21:29)
--- NOTE | 2016-07-08 09:42 | XRay Report ---
History is short of breath Comparison 07/07/2016 The cardiac silhouette is moderate to severely enlarged with sequelae of prior median sternotomy. Vascular congestion remains There remains consolidation and effusion in the lower one third left chest obscuring left diaphragm Mild diffuse hazy infiltrates versus edema remains similar on the prior study. Impression: No interval change described above PROCEDURE INTERPRETED AT [facility] DEPARTMENT OF RADIOLOGY Final Report Signed by: Dr. Ginna Fisher
--- NOTE | 2016-07-08 11:10 | Hospitalist Progress Note ---
Assessment and Plan (1) Diabetes Status: Chronic Assessment and plan: Hemoglobin A1c 6.4. Continue sliding scale and Accu-Cheks. Current Visit: Yes Qualifiers: Diabetes mellitus type: type 2 Diabetes mellitus complication status: with kidney complications Diabetes mellitus complication detail: with chronic kidney disease Chronic kidney disease stage: on chronic dialysis (2) HTN (hypertension) Status: Chronic Current Visit: Yes Qualifiers: Hypertension type: essential hypertension Qualified Code(s): I10 - Essential (primary) hypertension (3) S/P CABG x 2 Status: Acute Current Visit: Yes (4) ESRD (end stage renal disease) on dialysis Status: Chronic Assessment and plan: Dialysis per nephrology. Current Visit: Yes (5) Elevated liver function tests Status: Acute Assessment and plan: Trending down. Current Visit: Yes Hospitalist: Subjective Interval history: Seen and examined with his at the bedside. No acute events overnight. Improved abdominal distention. Good bowel movement last night. Cardiothoracic surgery notes reviewed. Patient denies any complaints. Blood sugars are under 200. LFTs are improving. Exam - Constitutional Vitals: Period Temp Pulse Resp BP Sys/Franco Pulse Ox Last 24 Hr 96.3 F-97.9 F 57-70 16-20 110-153/69-81 90-96 General appearance: no acute distress, over weight - Head Head exam: Present: normal inspection, normocephalic - Respiratory Respiratory exam: Present: clear to auscultation bilaterally - Cardiovascular Cardiovascular exam: Present: regular rate and rhythm - GI/Abdominal GI/Abdominal exam: Present: normal bowel sounds, soft. Absent: tenderness - Extremities Exam Extremities exam: Absent: edema - Neurological Exam Neurological exam: Present: alert, oriented X3 - Psychiatric Psychiatric exam: Present: normal affect, normal mood - Skin Skin exam: Present: normal color, warm, dry Results - Labs CBC & BMP: 07/08/16 05:44 07/08/16 05:44 Lab Results: I have reviewed the past 24 hour labs Quality Measures - VTE Contraindication to Pharmacological VTE Prophylaxis: High Risk of Bleeding Specialty Discharge - Follow Up or Referrals
--- NOTE | 2016-07-08 11:45 | Nephrology Progress Note ---
Nephrology - PN: Subj Interval history: Mr. Juarez is seen in follow-up of his end-stage renal disease and recent coronary artery bypass surgery. He is doing well and is without complaints. Today he is resting. He has no edema and his chest is clear. He is getting up and is in a chair today. He's been walking to the bathroom but that's about as far as he has been going. Plan is to continue dialysis per his usual schedule and he'll increase his activity as tolerated Exam (PN)-Nephrology - Vital Signs Vital signs: Period Temp Pulse Resp BP Sys/Franco Pulse Ox Last 24 Hr 96.3 F-97.9 F 57-70 16-20 110-153/69-81 90-96 - Lab 07/08/16 05:44 07/08/16 05:44 Most recent lab results ABG pH 7.401 (7.35-7.45) 07/06/16 04:22 ABG pCO2 39.5 MM HG (35-48) 07/06/16 04:22 ABG pO2 55.2 MM HG (80-95) L 07/06/16 04:22 ABG HCO3 24.0 MMOL/L (20-26) 07/06/16 04:22 ABG O2 Saturation 85.0 % (95-100) L 07/06/16 04:22 Calcium 7.5 MG/DL (8.5-10.1) L 07/08/16 05:44 Magnesium 2.5 MG/DL (1.8-2.4) H 07/08/16 05:44 Specialty Discharge - Follow Up or Referrals
[2016-07-08] MEDS: ZALEPLON 5 MG CAPSULE PO PRN (21:29)
--- NOTE | 2016-07-09 08:22 | Dialysis Note ---
Dialysis Note - Dialysis Note Mr. Juraez is seen during his hemodialysis. He is tolerating it well. We'll plan to continue dialysis usual schedule
--- NOTE | 2016-07-09 09:33 | Cardiothoracic Progress Note ---
Cardiothoracic Subjective Interval history: Patient is seen on dialysis. His vital signs have been stable and he is breathing comfortably. He is somewhat lethargic this morning so I'm going to discontinue his bedtime dose of Sonata. Otherwise we will continue routine therapy and try to increase his activity level. Exam (Progress Note) - Constitutional Vitals: Period Temp Pulse Resp BP Sys/Franco Pulse Ox Last 24 Hr 96.1 F-97.9 F 65-87 16-21 153-180/75-93 92-94 Result/EKG - Labs CBC & BMP: 07/08/16 05:44 07/08/16 05:44 Labs: Laboratory Results - last 24 hr 07/08/16 07/08/16 07/08/16 12:08 15:32 23:03 POC Glucose 242 H 246 H 246 H 07/09/16 07:24 POC Glucose 137 H Quality Measures - VTE Contraindication to Pharmacological VTE Prophylaxis: High Risk of Bleeding Specialty Discharge - Follow Up or Referrals
--- NOTE | 2016-07-09 09:45 | Hospitalist Progress Note ---
Assessment and Plan (1) Diabetes Status: Chronic Assessment and plan: Hemoglobin A1c 6.4. Continue sliding scale and Accu-Cheks. Current Visit: Yes Qualifiers: Diabetes mellitus type: type 2 Diabetes mellitus complication status: with kidney complications Diabetes mellitus complication detail: with chronic kidney disease Chronic kidney disease stage: on chronic dialysis (2) HTN (hypertension) Status: Chronic Current Visit: Yes Qualifiers: Hypertension type: essential hypertension Qualified Code(s): I10 - Essential (primary) hypertension (3) S/P CABG x 2 Status: Acute Current Visit: Yes (4) ESRD (end stage renal disease) on dialysis Status: Chronic Assessment and plan: Dialysis per nephrology. Current Visit: Yes (5) Elevated liver function tests Status: Acute Assessment and plan: Trending down. Current Visit: Yes Hospitalist: Subjective Interval history: Patient seen and examined. He is currently undergoing dialysis. Reports constipation. Once to have a bowel movement. No acute events overnight. Tolerating dialysis well. Exam - Constitutional Vitals: Period Temp Pulse Resp BP Sys/Franco Pulse Ox Last 24 Hr 96.1 F-97.9 F 65-87 16-21 153-180/75-93 92-94 General appearance: no acute distress - Head Head exam: Present: normal inspection, normocephalic - Eye Eye exam: Present: EOMI - Respiratory Respiratory exam: Present: clear to auscultation bilaterally - Cardiovascular Cardiovascular exam: Present: regular rate and rhythm - GI/Abdominal GI/Abdominal exam: Present: normal bowel sounds, soft - Extremities Exam Extremities exam: Absent: full ROM, edema - Neurological Exam Neurological exam: Present: alert, oriented X3 - Psychiatric Psychiatric exam: Present: normal affect, normal mood - Skin Skin exam: Present: normal color, warm, dry Results - Labs CBC & BMP: 07/08/16 05:44 07/08/16 05:44 Lab Results: I have reviewed the past 24 hour labs Quality Measures - VTE Contraindication to Pharmacological VTE Prophylaxis: High Risk of Bleeding Specialty Discharge - Follow Up or Referrals
[2016-07-09] MEDS: CHLORHEXIDINE 0.12% ORAL RINSE 60 ML BOTTLE SWISH/SPIT SCH (11:05)
[2016-07-09] MEDS: CARVEDILOL 12.5 MG TABLET PO SCH (11:05)
[2016-07-09] MEDS: DOCUSATE SODIUM 100 MG CAPSULE PO SCH (11:06)
[2016-07-09] MEDS: NAPROXEN 500 MG TABLET PO SCH (11:06)
[2016-07-09] MEDS: FERROUS SULFATE 325 MG TABLET PO SCH (11:06)
[2016-07-09] MEDS: PANTOPRAZOLE 40 MG TABLET PO SCH (11:07)
[2016-07-09] MEDS: METHOCARBAMOL 500 MG TABLET PO SCH ×2 (11:07→12:27)
[2016-07-09] MEDS: ASPIRIN EC 81 MG TABLET PO SCH (11:07)
--- NOTE | 2016-07-09 12:47 | Nephrology Progress Note ---
Nephrology - PN: Subj Interval history: Patient complains of being frustrated. He states he took himself off of dialysis this morning because he did not want to use a bedpan for a bowel movement. Physical exam general patient is usually ill-appearing, he is very drowsy, he is having some difficulty keeping his eyes open during the interview, Heart is regular rate and rhythm, he has trace pretibial edema, lungs are clear to auscultation anteriorly, abdomen is soft with decreased bowel sounds Assessment/plan 1. Coronary artery disease-patient status post CABG 2. Altered mental status-the patient is drowsy appearing and seems to get winded easily with just verbalizations, his may be related to medications, the patient had a Percocet yesterday as well as some Sonata last night he's also been getting Robaxin on a scheduled basis. His Sonata has been stopped and I' ll stop his Robaxin as well. I'm going to stop his scheduled dose of Naprosyn and instead I think this when necessary. 3. Volume overload-we'll try and get off 3-4 KG use with dialysis tomorrow 4. End-stage renal disease-patient stopped his dialysis treatment about 45 minutes into the treatment due to some frustrations with his bowels. 5. Constipation-I'll give the patient a dose of MiraLAX Exam (PN)-Nephrology - Vital Signs Vital signs: Period Temp Pulse Resp BP Sys/Franco Pulse Ox Last 24 Hr 96.1 F-97.9 F 65-87 17-21 112-180/63-93 92-100 - Lab 07/08/16 05:44 07/08/16 05:44 Most recent lab results ABG pH 7.401 (7.35-7.45) 07/06/16 04:22 ABG pCO2 39.5 MM HG (35-48) 07/06/16 04:22 ABG pO2 55.2 MM HG (80-95) L 07/06/16 04:22 ABG HCO3 24.0 MMOL/L (20-26) 07/06/16 04:22 ABG O2 Saturation 85.0 % (95-100) L 07/06/16 04:22 Calcium 7.5 MG/DL (8.5-10.1) L 07/08/16 05:44 Magnesium 2.5 MG/DL (1.8-2.4) H 07/08/16 05:44 Specialty Discharge - Follow Up or Referrals
[2016-07-09] MEDS ORDERED: NAPROXEN 500 MG TABLET PO PRN (12:50)
[2016-07-09] MEDS ORDERED: POLYETHYLENE GLYCOL POWDER 17 GM PACK PO SCH (13:00)
[2016-07-09 16:09] VITALS: BP 93/52
--- NOTE | 2016-07-10 08:54 | Discharge Summary ---
Hospital Course - Hospital Course Hospital Course: History of present illness: Patient is a 61-year-old man who is admitted [facility] for recent onset substernal chest discomfort. Patient had undergone stenting of his anterior descending coronary artery about 3 years ago and had had done relatively well until the present admission. He was admitted for cardiac catheterization which demonstrated critical left main coronary stenosis and was referred for revascularization. Past medical history significant in that the patient has end-stage renal failure with hemodialysis for the past year and a half. He also suffers from severe hypertension. Other than that he has been reasonably active. His family history social history and review of systems are documented in his admission note. Hospital course: Patient was taken to surgery where 2 vessel bypass grafting was carried out with an internal mammary graft to the obtuse marginal coronary artery and a saphenous vein graft to the anterior descending coronary artery. Immediate postoperative course was marked by what appeared to be an allergic reaction probably to platelet transfusion. The patient had been on Plavix preoperatively and was given platelets to help with hemostasis. The reaction produced rather profound hypotension for a period of 2-3 hours immediately postop. This resolved with medical therapy and the patient subsequently made an uncomplicated recovery. He was scheduled for discharge today but last night became upset with the nursing staff and signed out AGAINST MEDICAL ADVICE. He was instructed to return to my office today for removal of his epicardial pacing wires. We will ask him to a turn in 30 days for follow-up visit. Specialty Discharge - Follow Up or Referrals Follow up with: Esvin Olivas MD [Physician] - 1 Month Discharge Plan - Discharge Data Disposition: Left Against Medical Advice Condition at Discharge: Stable Discharge Diet: advance to your usual diet Activity: resume usual activities as tolerated Hygiene: no restrictions Weight Bearing at Discharge: full weight bearing Driving: not until seen by doctor - Discharge Medications No Action Insulin Aspart Prot/Asp 70/30 [NovoLOG Mix 70/30] 10 unit SUBCUT DAILY Naproxen [Naprosyn Tab] 1 tablet PO BID Methocarbamol Tab [Robaxin Tab] 1,000 mg PO QID PRN PRN Reason: Muscle Spasm Carvedilol [Coreg] 12.5 mg PO DAILY Aspirin EC Tab 81 mg PO DAILY traMADol TAB [Ultram] 1 tablet PO Q4H PRN PRN Reason: Pain Mild To Moderate (1-7) - Follow Up or Referral - Forms/Instructions Instructions: Heart Healthy Diet (GEN), Coronary Artery Bypass Graft, [employer] Faculty Member (GEN), Sternal Precautions, [employer] Faculty Member (GEN) Exam - Constitutional Vitals: Period Temp Pulse Resp BP Sys/Franco Pulse Ox Last 24 Hr 97.6 F-97.6 F 75-78 18-18 93-112/52-63 94-100 Discharge Results Procedures and tests throughout hospitalization: Pending Orders 07/02/16 22:45 Fresh Frozen Plasma Routine Red Blood Cells Leuko Red Routine Single Donor Platelets Routine Type and Screen Routine Labs on day of discharge: Labs from last 24 hours 07/09/16 07/09/16 15:34 11:24 POC Glucose 132 H 116 H DS: Provider Date of admission: 07/02/16 21:20 Primary care physician: . No PCP Attending physician on admission: Esvin Olivas MD Consults: 07/06/16 09:31 Consult to Cardiac Rehabilitation [CONS] Routine Reason for Cardiac Rehabilitation: Other Consult Comment: Post CABG/heart surgery Consult to [facility], Educator [CONS] Routine Reason for Agronomy Professor: Diabetes Education Initial Insulin Education Consult Comment: insulin education Consult to Dietitian [CONS] Routine Reason for Dietitian: Dietary Consult Consult Comment: Cardiac, low salt, low cholesterol diet Consult to Physical Therapy [CONS] Routine Reason for Physical Therapy: Other Consult Comment: CV Rehab Consult to Physician [CONS] Routine Comment: Management of diabetes Consulting Provider: Rebecca Gant Consulting Provider Notified: Yes Consult to Specialist Group: Hospitalist Person Notified: LESTER Date Notified: 07/06/16 Time Notified: 09:35 Discharging clinician: Esvin Olivas MD Expected date of discharge: 07/10/16
== END 2016-07-09 17:42 | disposition left against medical advice (07) | DRG 235 ==
LOC: N.ICU 21:20 → N.CVR 07-03 07:20 → N.ICU 07-05 10:03 → N.TELES 07-06 14:51